=== PATIENT | female | born 1980 | race Caucasian/White ===

== ENCOUNTER 2016-06-08 20:51 | Inpatient (IN) | payer BC ==
[2016-06-08] MEDS ORDERED: Sodium Chloride 0.65% Nasal Spray 45 ML Bottle NAS PRN (23:59)
[2016-06-09] MEDS ORDERED: Lactated Ringers 1,000 ML ONE (05:56)
[2016-06-09] MEDS: Lactated Ringers 1,000 ML IV SCH ×3 (06:10→15:55)
[2016-06-09] MEDS ORDERED: Nalbuphine 20 MG/1 ML Amp IVPUSH PRN (06:28)
[2016-06-09] MEDS ORDERED: Ondansetron 4 MG/2 ML SDV IVPUSH PRN (06:28)
[2016-06-09] MEDS ORDERED: Lidocaine 1% 50 ML MDV INJECT PRN (06:28)
[2016-06-09] MEDS ORDERED: Oxytocin/Lactated Ringers 10 UNIT/1,000 ML BAG IV SCH ×2 (06:30→06:45)
--- NOTE | 2016-06-09 06:46 | PCM.LDHP ---
L&D History of Present Illness - General Date of Service: 06/09/16 Admit Problem/Dx: Patient Status Order with Admit Dx/Problem 06/08/16 23:58 Patient Status [ADT] Routine Patient Status: Refer to Observation Admission Diagnosis/Problem: Reason for Admit: labor check Nurse Unit Type: Labor and Delivery Admitting Physician: Nidia Mills Attending Physician: Nidia Mills Medicare 96 Hour Certification Statement: This Patient is Admitted for Inpatient Services and is Medically Appropriate and Meets Medical Necessity for Inpatient Admission. I Reasonably Expect the Patient Will Require Inpatient Services That Span a Period of Time Over 2 Midnights. My Rationale for Medically Necessary Inpatient Care Will Be Found in the Admission History & Physical and Progress Notes. I Reasonably Expect the Patient to be Discharged or Transferred Within 96 Hours After Admission to This [facility] Hospital. Admission Diagnosis/Problem Admission Diagnosis/Problem Source of Information: Patient History Limitations: Reports: No limitations - History of Present Illness Introduction:: Patient is a 35 y/o at 39 3/7 wks who presented last night around 2100 for concerns of possible labor. She was found to only be 1 cm dilated, but at times was noted to have an intermittent late deceleration. She was kept for observation given this finding and throughout the night has continued to have sporadic late decelerations and has had 2 prolonged decelerations. She is otherwise doing well. Denies any further contractions. 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: Psychiatric History: Reports: Anxiety, Depression - Past Surgical History HEENT Surgical History: Reports: Adenoidectomy, Myringotomy w tube(s), Tonsillectomy GI Surgical History: Reports: Hernia, abdominal Female Surgical History: Reports: section, LEEP Social & Family History - Family History Family Medical History: Noncontributory - Tobacco Use Smoking Status *Q: Never Smoker Second Hand Smoke Exposure: No - Caffeine Use Caffeine Use: Reports: Soda - Alcohol Use Alcohol Use History: No Days Per Week of Alcohol Use: 0 Number of Drinks Per Day: 3 Total Drinks Per Week: 0 - Recreational Drug Use Recreational Drug Use: No - Living Situation & Occupation Living situation: Reports: , with spouse, with family (1 daughter) 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) H&P Review of Systems - Review of Systems: Review Of Systems: See Below General: Reports: no symptoms Pulmonary: Reports: No Symptoms Cardiovascular: Reports: no symptoms 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: Reports: No symptoms Genitourinary: Reports: no symptoms 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: Reports: no symptoms Psychiatric: Reports: no symptoms Neurological: Reports: No Symptoms L&D Exam - Exam Exam: See Below - Vital Signs Vital Signs: Last Vital Signs Temp 36.0 C 06/08/16 23:58 Pulse 95 06/08/16 23:58 Resp 18 06/08/16 23:58 BP 133/80 06/08/16 23:58 Pulse Ox 100 06/08/16 23:58 Weight: 122.062 kg - OB Specific Contraction Intensity: Mild movement: active heart tones: present heart tones per min: 140 Heart Rate (FHR) Variability: Moderate (6-25 bmp) Presentation: Vertex - Lord Score Lord Score Cervix Position: Anterior Lord Score Consistency: Soft Lord Score Effacement: >80% Lord Score Dilation: 1-2 cm Lord Score Infant's Station: -2 Lord Score Total: 9 - Exam General: alert, oriented, cooperative Lungs: Clear to auscultation, Normal respiratory effort Cardiovascular: regular rate, regular rhythm Abdomen: soft Genitourinary: Normal external exam Extremities: normal inspection Skin: warm, dry, intact - Patient Data Result Diagrams: 06/09/16 08:06 - Problem List (1) 39 weeks gestation of SNOMED Code(s): 23060470 ICD Code: Z3A.39 - 39 WEEKS GESTATION OF Status: Acute Current Visit: Yes (2) History of SNOMED Code(s): 961250156 ICD Code: Z98.891 - HISTORY OF UTERINE SCAR FROM PREVIOUS SURGERY Status: Acute Current Visit: Yes (3) Desires (vaginal after ) trial SNOMED Code(s): 730390378, 026578778 ICD Code: O34.219 - MATERNAL CARE FOR UNSP TYPE SCAR FROM PREVIOUS DEL Status: Acute Current Visit: Yes (4) MARLO (obstructive sleep apnea) SNOMED Code(s): 82521292 ICD Code: G47.33 - OBSTRUCTIVE SLEEP APNEA (ADULT) (PEDIATRIC) Status: Acute Current Visit: Yes Problem List Initiated/Reviewed/Updated: Yes Orders Last 24hrs: Active Orders 24 hr Category Date Time Status Patient Status [ADT] Routine ADT 06/08/16 23:58 Active Activity as Tolerated [RC] PFP Care 06/09/16 06:28 Active Communication Order [RC] ASDIRECTED Care 06/09/16 06:28 Active Notify Provider [RC] PRN Care 06/09/16 06:28 Active Up ad Ann [RC] Care 06/08/16 23:59 Active Vital Signs [RC] Care 06/08/16 23:58 Active Vital Signs [RC] PER UNIT ROUTINE Care 06/09/16 06:28 Active Regular Diet [DIET] Diet 06/08/16 Breakfast Active CBC WITH AUTO DIFF [HEME] Timed Lab 06/09/16 06:28 Ordered TYPE AND SCREEN [BBK] Timed Lab 06/09/16 06:45 Ordered Lactated Ringers [Ringers, Lactated] 1,000 ml Med 06/09/16 06:30 Active IV ASDIRECTED Lidocaine 1% [Xylocaine 1%] Med 06/09/16 06:28 Active 50 ml INJECT ONETIME PRN Nalbuphine [Nubain] Med 06/09/16 06:28 Active 10 mg IVPUSH Q2H PRN Ondansetron [Zofran] Med 06/09/16 06:28 Active 4 mg IVPUSH Q4H PRN Oxytocin/Lactated Ringers [Pitocin in LR 10 Units/1,000 Med 06/09/16 06:30 Active ML] 10 unit in 1,000 ml IV ASDIRECTED Oxytocin/Lactated Ringers [Pitocin in LR 10 Units/1,000 Med 06/09/16 06:45 Active ML] 10 unit in 1,000 ml IV TITRATE Sodium Chloride 0.65% [[place] Nasal [place]] Med 06/08/16 23:59 Active 1 ml EARNEST Q2H PRN Electronic Heart Tones Ext w TOCO [WOMSER] Oth 06/09/16 06:28 Ordered Routine Electronic Heart Tones Internal [WOMSER] Per Unit Oth 06/09/16 06:28 Ordered Routine Peripheral IV Insertion Adult [OM.PC] Routine Oth 06/09/16 06:28 Ordered Resuscitation Status Routine Resus Stat 06/08/16 23:57 Ordered Medication Orders Lactated Ringer's (Ringers, Lactated) 1,000 mls @ 100 mls/hr IV ASDIRECTED DIANDRA Oxytocin/Lactated Ringer's (Pitocin In Lr 10 Units/1,000 Ml) 10 unit in 1,000 mls @ 500 mls/hr IV ASDIRECTED DIANDRA Oxytocin/Lactated Ringer's (Pitocin In Lr 10 Units/1,000 Ml) 10 unit in 1,000 mls @ 12 mls/hr IV TITRATE DIANDRA; 2 MUNITS/MIN PRN Reason: Protocol Lidocaine HCl (Xylocaine 1%) 50 ml INJECT ONETIME PRN PRN Reason: perineal pain Nalbuphine HCl (Nubain) 10 mg IVPUSH Q2H PRN PRN Reason: Pain (moderate 4-6) Ondansetron HCl (Zofran) 4 mg IVPUSH Q4H PRN PRN Reason: Nausea/Vomiting Sodium Chloride ([place] Nasal [place]) 1 ml EARNEST Q2H PRN PRN Reason: nasal congestion Assessment/Plan Comment:: 35 y/o at 39 3/7 wks presented last night for concerns of labor. No active cervical change, however, with intermittent late decelerations and 2 prolonged decelerations. Discussed with patient findings on monitor. Would recommend she stay for delivery. This could be accomplished two ways. Could proceed with RLTCS or could try an induction/TOLAC. Concern with TOLAC is that baby may not tolerate this process, however, tracing findings right now are intermittent enough that I don't think this precludes trial. Did review again risks of TOLAC including uterine rupture, impaired blood flow to baby, neurological injury to baby, or even . She expressed understanding of these risks and desires to proceed. Sorto bulb placed and will start pitocin. Will monitor closely. AROM when able. CBC and T&S now. GBS negative , no need for antibiotics. Pain management per her preference.
--- NOTE | 2016-06-09 12:35 | PCM.PREANE ---
Preanesthetic Assessment - Anesthesia/Transfusion/Family Hx Anesthesia History: Prior Anesthesia Without Reaction Transfusion History: No Prior Transfusion(s) - Physical Assessment O2 Sat by Pulse Oximetry: 100 Respiratory Rate: 18 Vital Signs: Last Vital Signs Temp 36.0 C 06/08/16 23:58 Pulse 95 06/08/16 23:58 Resp 18 06/08/16 23:58 BP 133/80 06/08/16 23:58 Pulse Ox 100 06/08/16 23:58 Height: 1.6 m Weight: 122.062 kg - Lab Values: Laboratory Last Values WBC 7.16 K/mm3 (3.98-10.04) 06/09/16 08:06 RBC 4.23 M/mm3 (3.98-5.22) 06/09/16 08:06 Hgb 12.2 gm/L (11.2-15.7) 06/09/16 08:06 Hct 37.0 % (34.1-44.9) 06/09/16 08:06 MCV 87.5 fl (79.4-94.8) 06/09/16 08:06 MCH 28.8 pg (25.6-32.2) 06/09/16 08:06 MCHC 33.0 g/dl (32.2-35.5) 06/09/16 08:06 RDW Std Deviation 45.1 fL (36.4-46.3) 06/09/16 08:06 Plt Count 215 K/mm3 (182-369) 06/09/16 08:06 MPV 10.6 fl (9.4-12.3) 06/09/16 08:06 Neut % (Auto) 56.4 % (34.0-71.1) 06/09/16 08:06 Lymph % (Auto) 29.2 % (19.3-51.7) 06/09/16 08:06 [place] % (Auto) 12.3 % (4.7-12.5) 06/09/16 08:06 Eos % (Auto) 1.7 (0.7-5.8) 06/09/16 08:06 Baso % (Auto) 0.1 % (0.1-1.2) 06/09/16 08:06 Neut # 4.04 K/mm3 (1.56-6.13) 06/09/16 08:06 Lymph # 2.09 K/mm3 (1.18-3.74) 06/09/16 08:06 [place] # 0.88 K/mm3 (0.24-0.36) H 06/09/16 08:06 Eos # 0.12 K/mm3 (0.04-0.36) 06/09/16 08:06 Baso # 0.01 K/mm3 (0.01-0.08) 06/09/16 08:06 Blood Type A POSITIVE 06/09/16 08:06 Gel Antibody Screen Negative 06/09/16 08:06 - Allergies Allergies/Adverse Reactions: Allergies Allergy/AdvReac Type Severity Reaction Status Date / Time No Known Allergies Allergy Verified 06/08/16 21:52 PreAnesthesia Questionnaire - Past Health History Medical/Surgical History: Denies Medical/Surgical History Respiratory History: Reports: Sleep apnea Other Respiratory History: uses CPAP at night 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: Reports: GERD 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: Psychiatric History: Reports: Anxiety, Depression - Infectious Disease History Infectious Disease History: Reports: Chicken pox - Past Surgical History HEENT Surgical History: Reports: Adenoidectomy, Myringotomy w tube(s), Tonsillectomy GI Surgical History: Reports: Hernia, abdominal Female Surgical History: Reports: section, LEEP - SUBSTANCE USE Smoking Status *Q: Never Smoker Second Hand Smoke Exposure: No Days Per Week of Alcohol Use: 0 Number of Drinks Per Day: 3 Total Drinks Per Week: 0 Recreational Drug Use History: No - HOME MEDS Home Medications: Home Meds Citalopram Hydrobromide [Celexa] 20 mg PO DAILY 10/22/15 [History] Esomeprazole Magnesium [Nexium] 40 mg PO BEDTIME 01/04/16 [History] - CURRENT (IN HOUSE) MEDS Current Meds: Current Medications Lactated Ringer's (Ringers, Lactated) 1,000 mls @ 100 mls/hr IV ASDIRECTED [facility] Last Admin: 06/09/16 07:55 Dose: 100 mls/hr Oxytocin/Lactated Ringer's (Pitocin In Lr 10 Units/1,000 Ml) 10 unit in 1,000 mls @ 500 mls/hr IV ASDIRECTED [facility] Oxytocin/Lactated Ringer's (Pitocin In Lr 10 Units/1,000 Ml) 10 unit in 1,000 mls @ 12 mls/hr IV TITRATE DIANDRA; 2 MUNITS/MIN PRN Reason: Protocol Last Titration: 06/09/16 11:15 Dose: 10 munits/min, 60 mls/hr Lidocaine HCl (Xylocaine 1%) 50 ml INJECT ONETIME PRN PRN Reason: perineal pain Nalbuphine HCl (Nubain) 10 mg IVPUSH Q2H PRN PRN Reason: Pain (moderate 4-6) Ondansetron HCl (Zofran) 4 mg IVPUSH Q4H PRN PRN Reason: Nausea/Vomiting Sodium Chloride ([place] Nasal [place]) 1 ml EARNEST Q2H PRN PRN Reason: nasal congestion Discontinued Medications Lactated Ringer's (Ringers, Lactated) Confirm Administered Dose 1,000 mls @ as directed .ROUTE .K-MED ONE Stop: 06/09/16 05:57 Last Admin: 06/09/16 07:12 Dose: Not Given Preanesthetic Assessment - ANESTHESIA/TRANSFUSION/FAMILY HX Anesthesia/Transfusion History: No Prior Transfusion(s), Prior Anesthesia (pt stated she vomited for most of her last in [place], no other complications with any of her other anesthetics ) Family History of Anesthesia Reaction: No Intubation History: Unknown Type of Transfusion Reactions: Reports: Unknown - REVIEW OF SYSTEMS Constitutional: Reports: cold symptoms (sinus congestion ) 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 Respiratory: Reports: no symptoms Cardiovascular: Reports: no symptoms GI: Reports: no symptoms (GERD controlled with medication ) Other: Reports: None, Depression, Anxiety - PHYSICAL ASSESSMENT O2 Sat by Pulse Oximetry: 100 RR: 18 Vital Signs: Last Vital Signs Temp 36.0 C 06/08/16 23:58 Pulse 95 06/08/16 23:58 Resp 18 06/08/16 23:58 BP 133/80 06/08/16 23:58 Pulse Ox 100 06/08/16 23:58 Height: 1.6 m Weight: 122.062 kg NPO Status Date: 06/09/16 NPO Status Time: 08:00 ASA Class: 2 Mental Status: Alert & Oriented x3 Airway Class: Mallampati = 3 Dentition: Reports: Missing Tooth/Teeth (missing molars x2) ROM/Head Extension: Full Respiratory Status: lungs clear to auscultation bilaterally Cardiovascular Status: regular rate & rhythm, normal S1, S2, no murmur, blood pressure WNL - LAB Values: Laboratory Last Values WBC 7.16 K/mm3 (3.98-10.04) 06/09/16 08:06 RBC 4.23 M/mm3 (3.98-5.22) 06/09/16 08:06 Hgb 12.2 gm/L (11.2-15.7) 06/09/16 08:06 Hct 37.0 % (34.1-44.9) 06/09/16 08:06 MCV 87.5 fl (79.4-94.8) 06/09/16 08:06 MCH 28.8 pg (25.6-32.2) 06/09/16 08:06 MCHC 33.0 g/dl (32.2-35.5) 06/09/16 08:06 RDW Std Deviation 45.1 fL (36.4-46.3) 06/09/16 08:06 Plt Count 215 K/mm3 (182-369) 06/09/16 08:06 MPV 10.6 fl (9.4-12.3) 06/09/16 08:06 Neut % (Auto) 56.4 % (34.0-71.1) 06/09/16 08:06 Lymph % (Auto) 29.2 % (19.3-51.7) 06/09/16 08:06 [place] % (Auto) 12.3 % (4.7-12.5) 06/09/16 08:06 Eos % (Auto) 1.7 (0.7-5.8) 06/09/16 08:06 Baso % (Auto) 0.1 % (0.1-1.2) 06/09/16 08:06 Neut # 4.04 K/mm3 (1.56-6.13) 06/09/16 08:06 Lymph # 2.09 K/mm3 (1.18-3.74) 06/09/16 08:06 [place] # 0.88 K/mm3 (0.24-0.36) H 06/09/16 08:06 Eos # 0.12 K/mm3 (0.04-0.36) 06/09/16 08:06 Baso # 0.01 K/mm3 (0.01-0.08) 06/09/16 08:06 Blood Type A POSITIVE 06/09/16 08:06 Gel Antibody Screen Negative 06/09/16 08:06 - ALLERGIES Allergies/Adverse Reactions: Allergies Allergy/AdvReac Type Severity Reaction Status Date / Time No Known Allergies Allergy Verified 06/08/16 21:52 - BLOOD Blood Available: No Product(s) Available: None - ANESTHESIA PLAN Preop Beta Heather: No Anesthesia Type Planned: Epidural - ACKNOWLEDGEMENTS Pt an Appropriate Candidate for the Planned Anesthesia: Yes Alternatives and Risks of Anesthesia Discussed w Pt/Guardian: Yes Pt/Guardian Understands and Agrees with Anesthesia Plan: Yes
[2016-06-09] MEDS ORDERED: Bupivacaine/fentaNYL/NS 100 ML Bag EPIDUR SCH (14:00)
--- NOTE | 2016-06-09 15:26 | PCM.SN ---
- Free Text/Narrative Note: Attempted epidural per pt wishes. pt quite obese. anatomical landmarks very difficult to identify/palpate. after multiple attempts at three different levels, and with 4.5 inch epidural needle, unable to encounter epidural space. Pt having difficulty staying in tucked position throughout due to labor pain. Pt asked if she wished me to continue trying and she elected to stop. Pt vital signs stable throughout
[2016-06-09] MEDS ORDERED: Metoclopramide 10 MG/2 ML SDV IVPUSH ONE (15:48)
[2016-06-09] MEDS ORDERED: Citric Acid/Sodium Citrate Solution 30 ML Cup PO ONE (15:48)
[2016-06-09] MEDS ORDERED: ceFAZolin 2 GM in Premix Bag 1 BAG IV ONE (15:48)
--- NOTE | 2016-06-09 15:55 | PCM.PNLD ---
Labor Progress Note - VS & Meds Vital Signs: Last Vital Signs Temp 36.0 C 06/08/16 23:58 Pulse 95 06/08/16 23:58 Resp 18 06/09/16 12:36 BP 133/80 06/08/16 23:58 Pulse Ox 100 06/09/16 12:36 Active Medications: Current Medications Fentanyl/Bupivacaine HCl (Fentanyl/Bupivacaine/Ns 2 Mcg-0.125% 100 Ml) 100 ml EPIDUR ASDIRECTED DIANDRA Lactated Ringer's (Ringers, Lactated) 1,000 mls @ 100 mls/hr IV ASDIRECTED DIANDRA Last Admin: 06/09/16 07:55 Dose: 100 mls/hr Oxytocin/Lactated Ringer's (Pitocin In Lr 10 Units/1,000 Ml) 10 unit in 1,000 mls @ 500 mls/hr IV ASDIRECTED DIANDRA Oxytocin/Lactated Ringer's (Pitocin In Lr 10 Units/1,000 Ml) 10 unit in 1,000 mls @ 12 mls/hr IV TITRATE DIANDRA; 2 MUNITS/MIN PRN Reason: Protocol Last Titration: 06/09/16 11:15 Dose: 10 munits/min, 60 mls/hr Lidocaine HCl (Xylocaine 1%) 50 ml INJECT ONETIME PRN PRN Reason: perineal pain Nalbuphine HCl (Nubain) 10 mg IVPUSH Q2H PRN PRN Reason: Pain (moderate 4-6) Last Admin: 06/09/16 15:30 Dose: 10 mg Non-Formulary Medication (Citalopram Hydrobromide [Celexa]) 20 mg PO DAILY [facility] Ondansetron HCl (Zofran) 4 mg IVPUSH Q4H PRN PRN Reason: Nausea/Vomiting Sodium Chloride ([place] Nasal [place]) 1 ml EARNEST Q2H PRN PRN Reason: nasal congestion Discontinued Medications Lactated Ringer's (Ringers, Lactated) Confirm Administered Dose 1,000 mls @ as directed .ROUTE .STK-MED ONE Stop: 06/09/16 05:57 Last Admin: 06/09/16 07:12 Dose: Not Given - Uterine Contractions Uterine Monitoring Mode: External [place] Contraction Intensity: Moderate - Monitoring Monitor Mode: External Ultrasound Heart Rate (FHR) Baseline: 130 Heart Rate (FHR) Variability: Moderate (6-25 bmp) Accelerations: Present, 15x15 Decelerations: None Strip Review: Category I - Vaginal Exam Dilation (cm): 2 Effacement (Percent): 80 Station: -3 Cervical Position: Anterior - Labor Progress (Free Text) Labor Progress: Patient got up to about 10 of pitocin and requested epidural as contractions started to become very painful. This was attempted by anesthesia, Dr. Rojas, several times and was unfortunately unsuccessful. Patient does not thinks she can continue with a trial of labor after without an epidural. Would like to move on to . Will arrange this under general.
[2016-06-09] MEDS ORDERED: Rocuronium 50 MG/5 ML Vial ONE (16:40)
[2016-06-09] MEDS ORDERED: Propofol 200 MG/20 ML SDV ONE (16:40)
[2016-06-09] MEDS ORDERED: Succinylcholine/Normal Saline 100 MG/5 ML Syringe ONE (16:40)
[2016-06-09] MEDS ORDERED: Lidocaine 1% 6 ML ONE (16:41)
[2016-06-09] MEDS ORDERED: ceFAZolin 1 GM Vial ONE (16:41)
[2016-06-09] MEDS ORDERED: Oxytocin 10 Units/1 ML SDV ONE (16:48)
[2016-06-09] MEDS ORDERED: HYDROmorphone 1 MG/ML Syringe ONE (17:27)
[2016-06-09] MEDS ORDERED: Ondansetron 4 MG/2 ML SDV ONE (17:53)
[2016-06-09] MEDS ORDERED: Neostigmine Methylsulfate 1 MG/ML 5 ML Syringe ONE (17:54)
[2016-06-09] MEDS: fentaNYL 100 MCG/2 ML SDV IVPUSH PRN ×2 (18:15→18:20)
--- NOTE | 2016-06-09 18:21 | PCM.OPNOTE ---
- General Post-Op/Procedure Note Date of Surgery/Procedure: 06/09/16 Operative Procedure(s): Repeat Findings: * moderate amounts of scar tissue between the fascia and the rectus. * Minimal scar tissue between the bladder and lower uterine segment. Lower uterine segment without any sign of thinning or defect. * Baby boy found to be in a vertex presentation, but very unengaged at time of C -section. Due to this he was delivered breech. * Apgars of 2 and 8. Weight of 7 lbs. 2 oz. Pre Op Diagnosis: History of . Declines further trial of labor after C -section Post-Op Diagnosis: Same Anesthesia Technique: General ET tube Primary Surgeon: Nidia Mills Secondary Surgeon: Luis E Weinstein Jr Anesthesia Provider: Yoni Rojas Pathology: Cord blood obtained. Placenta discarded. Fluid Replacement, Intraop: 700 Output, Urine Amount: 65 EBL in mLs: 800 Complications: None Condition: Good Free Text/Narrative:: The risks, benefits, indications, potential complications, and alternatives were explained to the patient and informed consent obtained. The patient was placed in a supine position and then draped and prepped in the usual sterile manner. General anesthesia then induced. A Pfannenstiel incision was made and carried down through the subcutaneous tissue to the fascia. Fascial incision was made and extended transversely. The fascia was from the underlying rectus tissue superiorly and inferiorly. The peritoneum was identified and entered. Peritoneal incision was extended longitudinally. The utero-vesical peritoneal reflection was incised transversely and the bladder flap was bluntly freed from the lower uterine segment. A low transverse uterine incision was made sharply with a scalpel and extended bluntly in a cephalocaudad direction. A hand was placed into the uterus and baby was found to be cephalic, but very unengaged. This made it difficult to bring the baby out of the uterus in a vertex presentation. Due to this difficulty decision made to proceed with breech delivery. A hand was used to grasp one foot which was brought through the hysterotomy and then the same procedure was repeated for the second foot. Normal breech maneuvers then performed to complete delivery. APGARS as above. After the umbilical cord was clamped and cut cord blood was obtained for evaluation. The placenta was removed intact and appeared normal. The uterus was unable to be exteriorized and so was cleared of clots while in the abdomen. The uterine outline appeared normal. Tubes and ovaries could not be seen. The uterine incision was closed with running locked sutures of 0 Vicryl. Hemostasis was obtained with a second imbricating layer of 0 vicryl. The infracolic gutters were cleared of blood clots. The fascia was then reapproximated with running sutures of 1 PDS. The sucutaneous tissue was irrigated with sterile warm normal saline, hemostasis obtained with cautery. This layer was closed with a running 0 vicryl. The skin was reapproximated with running Subcuticular 4-0 monocryl sutures. Instrument, sponge, and needle counts were correct prior the abdominal closure and at the conclusion of the case.
[2016-06-09] MEDS: HYDROmorphone 0.5 MG/0.5 ML Syringe IVPUSH PRN ×2 (18:28→18:43)
[2016-06-09] MEDS ORDERED: Morphine 2 MG/ML Syringe IVPUSH PRN (19:35)
[2016-06-09] MEDS ORDERED: Docusate Sodium 100 MG Cap PO PRN (19:35)
[2016-06-09] MEDS ORDERED: Dextrose 5%-Lactated Ringers 1,000 ML IV SCH (19:35)
[2016-06-09] MEDS ORDERED: Lanolin 100% Cream 7 GM Tube TOP PRN (19:35)
[2016-06-09] MEDS: Acetaminophen/oxyCODONE 325-5 MG Tab PO PRN (21:07)
[2016-06-09] MEDS: Citalopram 20 MG Tab PO SCH (21:08)
[2016-06-09] MEDS: Ketorolac 30 MG/ML SDV IVPUSH SCH (23:36)
[2016-06-10] MEDS: Acetaminophen/oxyCODONE 325-5 MG Tab PO PRN ×4 (01:13→19:59)
[2016-06-10] MEDS: Ketorolac 30 MG/ML SDV IVPUSH SCH ×3 (05:39→12:26)
--- NOTE | 2016-06-10 06:34 | PCM.PNPP ---
- General Info Date of Service: 06/10/16 Functional Status: Reports: pain controlled, tolerating diet, ambulating - Review of Systems General: Reports: No Symptoms Pulmonary: Reports: no symptoms Cardiovascular: Reports: No Symptoms 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: Reports: Abdominal pain (Manageable with medications ) Genitourinary: Reports: no symptoms 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: Reports: no symptoms - Patient Data Vital Signs - most recent: Last Vital Signs Temp 36.7 C 06/10/16 04:11 Pulse 109 H 06/10/16 04:11 Resp 19 06/10/16 04:11 BP 122/64 06/10/16 04:11 Pulse Ox 97 06/10/16 04:11 Weight - most recent: 122.062 kg I&O - last 24 hours: Intake & Output 06/09/16 06/09/16 06/10/16 14:59 22:59 06:59 Intake Total 240 5400 Output Total 190 750 Balance 240 5210 -750 Lab Results - last 24 hrs: Laboratory Results - last 24 hr 06/09/16 06/09/16 Range/Units 08:06 08:06 WBC 7.16 (3.98-10.04) K/mm3 RBC 4.23 (3.98-5.22) M/mm3 Hgb 12.2 (11.2-15.7) gm/L Hct 37.0 (34.1-44.9) % MCV 87.5 (79.4-94.8) fl MCH 28.8 (25.6-32.2) pg MCHC 33.0 (32.2-35.5) g/dl RDW Std Deviation 45.1 (36.4-46.3) fL Plt Count 215 (182-369) K/mm3 MPV 10.6 (9.4-12.3) fl Neut % (Auto) 56.4 (34.0-71.1) % Lymph % (Auto) 29.2 (19.3-51.7) % [place] % (Auto) 12.3 (4.7-12.5) % Eos % (Auto) 1.7 (0.7-5.8) Baso % (Auto) 0.1 (0.1-1.2) % Neut # 4.04 (1.56-6.13) K/mm3 Lymph # 2.09 (1.18-3.74) K/mm3 [place] # 0.88 H (0.24-0.36) K/mm3 Eos # 0.12 (0.04-0.36) K/mm3 Baso # 0.01 (0.01-0.08) K/mm3 Blood Type A POSITIVE Gel Antibody Screen Negative Med Orders - Current: Current Medications Citalopram Hydrobromide (Celexa) 20 mg PO BEDTIME [facility] Last Admin: 06/09/16 21:08 Dose: 20 mg Docusate Sodium (Colace) 100 mg PO Q12H PRN PRN Reason: Constipation Emollient Ointment (Lansinoh Hpa) 0 gm TOP ASDIRECTED PRN PRN Reason: Sore Nipples Ketorolac Tromethamine (Toradol) 30 mg IVPUSH Q6H DIANDRA Stop: 06/10/16 11:56 Last Admin: 06/10/16 05:39 Dose: 30 mg Morphine Sulfate (Morphine) 2 mg IVPUSH Q1H PRN PRN Reason: Pain (severe 7-10) Oxycodone/Acetaminophen (Percocet 325-5 Mg) 2 tab PO Q4H PRN PRN Reason: Pain (moderate 4-6) Last Admin: 06/10/16 01:13 Dose: 2 tab Discontinued Medications Cefazolin Sodium (Ancef) Confirm Administered Dose 3 gm .ROUTE .STK-MED ONE Stop: 06/09/16 16:42 Citric Acid/Sodium Citrate (Bicitra Solution) 30 ml PO ONETIME ONE Stop: 06/09/16 15:49 Last Admin: 06/09/16 16:24 Dose: 30 ml Fentanyl (Sublimaze) 50 mcg IVPUSH Q5M PRN PRN Reason: Pain Stop: 06/09/16 18:31 Last Admin: 06/09/16 18:20 Dose: 50 mcg Fentanyl/Bupivacaine HCl (Fentanyl/Bupivacaine/Ns 2 Mcg-0.125% 100 Ml) 100 ml EPIDUR ASDIRECTED [facility] Glycopyrrolate () Confirm Administered Dose 1 mg .ROUTE .STK-MED ONE Stop: 06/09/16 17:55 Hydromorphone HCl (Dilaudid) Confirm Administered Dose 1 mg .ROUTE .STK-MED ONE Stop: 06/09/16 17:28 Hydromorphone HCl (Dilaudid) 0.5 mg IVPUSH Q15M PRN PRN Reason: Severe pain Stop: 06/09/16 18:31 Last Admin: 06/09/16 18:43 Dose: 0.5 mg Lactated Ringer's (Ringers, Lactated) Confirm Administered Dose 1,000 mls @ as directed .ROUTE .[facility] ONE Stop: 06/09/16 05:57 Last Admin: 06/09/16 07:12 Dose: Not Given Lactated Ringer's (Ringers, Lactated) 1,000 mls @ 100 mls/hr IV ASDIRECTED DIANDRA Last Admin: 06/09/16 15:55 Dose: 100 mls/hr Oxytocin/Lactated Ringer's (Pitocin In Lr 10 Units/1,000 Ml) 10 unit in 1,000 mls @ 500 mls/hr IV ASDIRECTED DIANDRA Oxytocin/Lactated Ringer's (Pitocin In Lr 10 Units/1,000 Ml) 10 unit in 1,000 mls @ 12 mls/hr IV TITRATE DIANDRA; 2 MUNITS/MIN PRN Reason: Protocol Last Titration: 06/09/16 11:15 Dose: 10 munits/min, 60 mls/hr Cefazolin Sodium/Dextrose 2 gm (/ Premix) 50 mls @ 100 mls/hr IV ONETIME ONE Stop: 06/09/16 16:17 Lidocaine HCl (Xylocaine-Mpf 1%) Confirm Administered Dose 6 mls @ as directed .ROUTE .[facility] ONE Stop: 06/09/16 16:42 Dextrose/Lactated Ringer's (Dextrose 5%-Lactated Ringers) 1,000 mls @ 125 mls/ hr IV ASDIRECTED DIANDRA Stop: 06/10/16 03:34 Last Admin: 06/09/16 21:58 Dose: 125 mls/hr Lidocaine HCl (Xylocaine 1%) 50 ml INJECT ONETIME PRN PRN Reason: perineal pain Metoclopramide HCl (Reglan) 10 mg IVPUSH ONETIME ONE Stop: 06/09/16 15:49 Last Admin: 06/09/16 16:24 Dose: 10 mg Nalbuphine HCl (Nubain) 10 mg IVPUSH Q2H PRN PRN Reason: Pain (moderate 4-6) Last Admin: 06/09/16 15:30 Dose: 10 mg Neostigmine Methylsulfate (Neostigmine) Confirm Administered Dose 5 mg .ROUTE .STK-MED ONE Stop: 06/09/16 17:55 Ondansetron HCl (Zofran) 4 mg IVPUSH Q4H PRN PRN Reason: Nausea/Vomiting Ondansetron HCl (Zofran) Confirm Administered Dose 4 mg .ROUTE .STK-MED ONE Stop: 06/09/16 17:54 Oxytocin (Pitocin) Confirm Administered Dose 10 unit .ROUTE .STK-MED ONE Stop: 06/09/16 16:49 Propofol (Diprivan 20 Ml) Confirm Administered Dose 200 mg .ROUTE .STK-MED ONE Stop: 06/09/16 16:41 Rocuronium [place] (Zemuron) Confirm Administered Dose 50 mg .ROUTE .STK-MED ONE Stop: 06/09/16 16:41 Sodium Chloride ([place] Nasal [place]) 1 ml EARNEST Q2H PRN PRN Reason: nasal congestion Succinylcholine Chloride (Succinylcholine In Ns Pf) Confirm Administered Dose 100 mg .ROUTE .STK-MED ONE Stop: 06/09/16 16:41 - Infant Interaction Infant Disposition, : [place] in Room with Family Infant Interaction: Holding Feeding: Attempted ; Nursed Fair/Poor Support Person: - Recovery Exam Fundal Tone: Firm Fundal Level: At Umbilicus Fundal Placement: Midline Lochia Amount: Small Lochia Color: Rubra/Red Perineum Description: Intact, Minimal Bruising/Swelling Bladder Status: Indwelling Catheter in Place - Exam General: alert, oriented, cooperative Lungs: Clear to auscultation, Normal respiratory effort, Decreased breath sounds Cardiovascular: Regular Rate, Regular Rhythm Abdomen: soft, tenderness (appropriate post op ) Extremities: edema Skin: warm, dry, intact - Problem List & Annotations (1) 39 weeks gestation of SNOMED Code(s): 48052770 Code(s): Z3A.39 - 39 WEEKS GESTATION OF Status: Acute Current Visit: Yes (2) History of SNOMED Code(s): 285558791 Code(s): Z98.891 - HISTORY OF UTERINE SCAR FROM PREVIOUS SURGERY Status: Acute Current Visit: Yes (3) Desires (vaginal after ) trial SNOMED Code(s): 601803983, 757659417 Code(s): O34.219 - MATERNAL CARE FOR UNSP TYPE SCAR FROM PREVIOUS DEL Status: Acute Current Visit: Yes (4) MARLO (obstructive sleep apnea) SNOMED Code(s): 76009405 Code(s): G47.33 - OBSTRUCTIVE SLEEP APNEA (ADULT) (PEDIATRIC) Status: Acute Current Visit: Yes - Problem List Review Problem List Initiated/Reviewed/Updated: Yes - My Orders Last 24 Hours: My Active Orders 06/09/16 17:05 Schedule Procedure [COMM] Stat 06/09/16 19:35 Activity as Tolerated [RC] .Routine Antiembolic Devices [RC] PER UNIT ROUTINE Communication Order [RC] PER UNIT ROUTINE Intake and Output [RC] Q4HR Notify Provider Intake and Out [RC] ASDIRECTED RT Incentive Spirometry [RC] Q2HWA Vital Signs [RC] Q4HR Acetaminophen/oxyCODONE [Percocet 325-5 MG] 2 tab PO Q4H PRN Docusate Sodium [Colace] 100 mg PO Q12H PRN Lanolin [Lansinoh HPA] See Dose Instructions TOP ASDIRECTED PRN Morphine 2 mg IVPUSH Q1H PRN Assess Lochia [WOMSER] Per Unit Routine Assess Uterine Involution [WOMSER] Per Unit Routine Breast Pump [WOMSER] Per Unit Routine Sequential Compression Device [OM.PC] Per Unit Routine 06/09/16 21:00 Citalopram [Celexa] 20 mg PO BEDTIME 06/09/16 23:55 Ketorolac [Toradol] 30 mg IVPUSH Q6H 06/09/16 Dinner Regular Diet [DIET] 06/10/16 05:11 CBC W/O DIFF,HEMOGRAM [HEME] AM 06/10/16 18:22 Urinary Catheter Removal [RC] Per Unit Routine - Assessment Assessment:: 35 y/o G2 now P2002 POD#1 from [facility] at 39 3/7 wks - Plan Plan:: Post op * Routine cares * Encourage breast feeding * Discharge home in 1-2 days
[2016-06-10] MEDS: Famotidine 20 MG Tab PO SCH (07:55)
--- NOTE | 2016-06-10 10:04 | PCM48HPAN ---
Post Anesthesia Note - EVALUATION WITHIN 48HRS OF ANESTHETIC Vital Signs in Normal Range: Yes Patient Participated in Evaluation: Yes Respiratory Function Stable: Yes Airway Patent: Yes Cardiovascular Function Stable: Yes Hydration Status Stable: Yes Pain Control Satisfactory: Yes Nausea and Vomiting Control Satisfactory: Yes Mental Status Recovered: Yes
[2016-06-10] MEDS: Ibuprofen 600 MG Tab PO PRN ×2 (14:08→21:52)
[2016-06-10] MEDS: Citalopram 20 MG Tab PO SCH (21:52)
[2016-06-11] MEDS: Acetaminophen/oxyCODONE 325-5 MG Tab PO PRN ×2 (01:21→05:37)
[2016-06-11] MEDS: Ibuprofen 600 MG Tab PO PRN (04:27)
--- NOTE | 2016-06-11 06:53 | PCM.PNPP ---
- General Info Date of Service: 06/11/16 Functional Status: Reports: pain controlled, tolerating diet, ambulating, urinating - Review of Systems General: Reports: No Symptoms Pulmonary: Reports: no symptoms Cardiovascular: Reports: No Symptoms 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: Reports: No symptoms Genitourinary: Reports: no symptoms 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: Reports: no symptoms - Patient Data Vital Signs - most recent: Last Vital Signs Temp 36.7 C 06/10/16 21:55 Pulse 111 H 06/10/16 21:55 Resp 18 06/10/16 21:55 BP 120/69 06/10/16 21:55 Pulse Ox 97 06/10/16 21:55 Weight - most recent: 122.062 kg I&O - last 24 hours: Intake & Output 06/10/16 06/10/16 06/11/16 14:59 22:59 06:59 Intake Total 1940 Output Total 1215 Balance 725 Lab Results - last 24 hrs: Laboratory Results - last 24 hr 06/10/16 Range/Units 07:48 WBC 7.03 (3.98-10.04) K/mm3 RBC 3.53 L (3.98-5.22) M/mm3 Hgb 10.2 L (11.2-15.7) gm/L Hct 30.9 L (34.1-44.9) % MCV 87.5 (79.4-94.8) fl MCH 28.9 (25.6-32.2) pg MCHC 33.0 (32.2-35.5) g/dl RDW Std Deviation 44.2 (36.4-46.3) fL Plt Count 164 L (182-369) K/mm3 MPV 10.6 (9.4-12.3) fl Med Orders - Current: Current Medications Citalopram Hydrobromide (Celexa) 20 mg PO BEDTIME [facility] Last Admin: 06/10/16 21:52 Dose: 20 mg Docusate Sodium (Colace) 100 mg PO Q12H PRN PRN Reason: Constipation Emollient Ointment (Lansinoh Hpa) 0 gm TOP ASDIRECTED PRN PRN Reason: Sore Nipples Famotidine (Pepcid) 20 mg PO DAILY [facility] Last Admin: 06/10/16 07:55 Dose: 20 mg Ibuprofen (Motrin) 600 mg PO Q6H PRN PRN Reason: Pain Last Admin: 06/11/16 04:27 Dose: 600 mg Morphine Sulfate (Morphine) 2 mg IVPUSH Q1H PRN PRN Reason: Pain (severe 7-10) Oxycodone/Acetaminophen (Percocet 325-5 Mg) 2 tab PO Q4H PRN PRN Reason: Pain (moderate 4-6) Last Admin: 06/11/16 05:37 Dose: 2 tab Discontinued Medications Cefazolin Sodium (Ancef) Confirm Administered Dose 3 gm .ROUTE .STK-MED ONE Stop: 06/09/16 16:42 Citric Acid/Sodium Citrate (Bicitra Solution) 30 ml PO ONETIME ONE Stop: 06/09/16 15:49 Last Admin: 06/09/16 16:24 Dose: 30 ml Fentanyl (Sublimaze) 50 mcg IVPUSH Q5M PRN PRN Reason: Pain Stop: 06/09/16 18:31 Last Admin: 06/09/16 18:20 Dose: 50 mcg Fentanyl/Bupivacaine HCl (Fentanyl/Bupivacaine/Ns 2 Mcg-0.125% 100 Ml) 100 ml EPIDUR ASDIRECTED [facility] Glycopyrrolate () Confirm Administered Dose 1 mg .ROUTE .STK-MED ONE Stop: 06/09/16 17:55 Hydromorphone HCl (Dilaudid) Confirm Administered Dose 1 mg .ROUTE .STK-MED ONE Stop: 06/09/16 17:28 Hydromorphone HCl (Dilaudid) 0.5 mg IVPUSH Q15M PRN PRN Reason: Severe pain Stop: 06/09/16 18:31 Last Admin: 06/09/16 18:43 Dose: 0.5 mg Lactated Ringer's (Ringers, Lactated) Confirm Administered Dose 1,000 mls @ as directed .ROUTE .STK-MED ONE Stop: 06/09/16 05:57 Last Admin: 06/09/16 07:12 Dose: Not Given Lactated Ringer's (Ringers, Lactated) 1,000 mls @ 100 mls/hr IV ASDIRECTED [facility] Last Admin: 06/09/16 15:55 Dose: 100 mls/hr Oxytocin/Lactated Ringer's (Pitocin In Lr 10 Units/1,000 Ml) 10 unit in 1,000 mls @ 500 mls/hr IV ASDIRECTED [facility] Oxytocin/Lactated Ringer's (Pitocin In Lr 10 Units/1,000 Ml) 10 unit in 1,000 mls @ 12 mls/hr IV TITRATE DIANDRA; 2 MUNITS/MIN PRN Reason: Protocol Last Titration: 06/09/16 11:15 Dose: 10 munits/min, 60 mls/hr Cefazolin Sodium/Dextrose 2 gm (/ Premix) 50 mls @ 100 mls/hr IV ONETIME ONE Stop: 06/09/16 16:17 Lidocaine HCl (Xylocaine-Mpf 1%) Confirm Administered Dose 6 mls @ as directed .ROUTE .STK-MED ONE Stop: 06/09/16 16:42 Dextrose/Lactated Ringer's (Dextrose 5%-Lactated Ringers) 1,000 mls @ 125 mls/ hr IV ASDIRECTED DIANDRA Stop: 06/10/16 03:34 Last Admin: 06/09/16 21:58 Dose: 125 mls/hr Ketorolac Tromethamine (Toradol) 30 mg IVPUSH Q6H [facility] Stop: 06/10/16 11:56 Last Admin: 06/10/16 12:26 Dose: Not Given Lidocaine HCl (Xylocaine 1%) 50 ml INJECT ONETIME PRN PRN Reason: perineal pain Metoclopramide HCl (Reglan) 10 mg IVPUSH ONETIME ONE Stop: 06/09/16 15:49 Last Admin: 06/09/16 16:24 Dose: 10 mg Nalbuphine HCl (Nubain) 10 mg IVPUSH Q2H PRN PRN Reason: Pain (moderate 4-6) Last Admin: 06/09/16 15:30 Dose: 10 mg Neostigmine Methylsulfate (Neostigmine) Confirm Administered Dose 5 mg .ROUTE .STK-MED ONE Stop: 06/09/16 17:55 Ondansetron HCl (Zofran) 4 mg IVPUSH Q4H PRN PRN Reason: Nausea/Vomiting Ondansetron HCl (Zofran) Confirm Administered Dose 4 mg .ROUTE .STK-MED ONE Stop: 06/09/16 17:54 Oxytocin (Pitocin) Confirm Administered Dose 10 unit .ROUTE .STK-MED ONE Stop: 06/09/16 16:49 Propofol (Diprivan 20 Ml) Confirm Administered Dose 200 mg .ROUTE .STK-MED ONE Stop: 06/09/16 16:41 Rocuronium [place] (Zemuron) Confirm Administered Dose 50 mg .ROUTE .STK-MED ONE Stop: 06/09/16 16:41 Sodium Chloride ([place] Nasal [place]) 1 ml EARNEST Q2H PRN PRN Reason: nasal congestion Succinylcholine Chloride (Succinylcholine In Ns Pf) Confirm Administered Dose 100 mg .ROUTE .STK-MED ONE Stop: 06/09/16 16:41 - Interaction Infant Disposition, : in Room with Family Infant Interaction: Holding Infant Infant Feeding: Attempted ; Nursed Fair/Poor Support Person: - Recovery Exam Fundal Tone: Firm Fundal Level: At Umbilicus Fundal Placement: Midline Lochia Amount: Small Lochia Color: Rubra/Red Perineum Description: Intact, Minimal Bruising/Swelling Bladder Status: Voiding - Exam General: alert, oriented, cooperative Lungs: Clear to auscultation, Normal respiratory effort Cardiovascular: Regular Rate, Regular Rhythm Abdomen: soft, tenderness (appropriate post op) Extremities: edema Skin: warm, dry, intact - Problem List & Annotations (1) 39 weeks gestation of SNOMED Code(s): 90720710 Code(s): Z3A.39 - 39 WEEKS GESTATION OF Status: Acute Current Visit: Yes (2) History of SNOMED Code(s): 348450948 Code(s): Z98.891 - HISTORY OF UTERINE SCAR FROM PREVIOUS SURGERY Status: Acute Current Visit: Yes (3) Desires (vaginal after ) trial SNOMED Code(s): 147918808, 392094267 Code(s): O34.219 - MATERNAL CARE FOR UNSP TYPE SCAR FROM PREVIOUS DEL Status: Acute Current Visit: Yes (4) MARLO (obstructive sleep apnea) SNOMED Code(s): 22974382 Code(s): G47.33 - OBSTRUCTIVE SLEEP APNEA (ADULT) (PEDIATRIC) Status: Acute Current Visit: Yes (5) S/P repeat low transverse SNOMED Code(s): 926320791, 393394891, 801838966, 187927248 Code(s): Z98.891 - HISTORY OF UTERINE SCAR FROM PREVIOUS SURGERY Status: Acute Current Visit: Yes - Problem List Review Problem List Initiated/Reviewed/Updated: Yes - My Orders Last 24 Hours: My Active Orders 06/10/16 06:45 Famotidine [Pepcid] 20 mg PO DAILY 06/10/16 14:00 Ibuprofen [Motrin] 600 mg PO Q6H PRN - Assessment Assessment:: 35 y/o G2 now P2002 POD#2 from [facility] at 39 3/7 wks - Plan Plan:: Post op * Routine cares * Encourage breast feeding * Discharge home today per patient preference
--- NOTE | 2016-06-11 07:31 | PCM.DCSUM1 ---
Discharge Summary - Discharge Data Discharge Date: 06/11/16 Discharge Disposition: Home, Self-Care 01 Condition: Good - Discharge Diagnosis/Problem(s) (1) 39 weeks gestation of SNOMED Code(s): 00631303 ICD Code: Z3A.39 - 39 WEEKS GESTATION OF Status: Acute Current Visit: Yes (2) History of SNOMED Code(s): 137607396 ICD Code: Z98.891 - HISTORY OF UTERINE SCAR FROM PREVIOUS SURGERY Status: Acute Current Visit: Yes (3) Desires (vaginal after ) trial SNOMED Code(s): 206300444, 538772151 ICD Code: O34.219 - MATERNAL CARE FOR UNSP TYPE SCAR FROM PREVIOUS DEL Status: Acute Current Visit: Yes (4) MARLO (obstructive sleep apnea) SNOMED Code(s): 45717013 ICD Code: G47.33 - OBSTRUCTIVE SLEEP APNEA (ADULT) (PEDIATRIC) Status: Acute Current Visit: Yes (5) S/P repeat low transverse SNOMED Code(s): 126774610, 586612111, 739942600, 734670300 ICD Code: Z98.891 - HISTORY OF UTERINE SCAR FROM PREVIOUS SURGERY Status: Acute Current Visit: Yes - Patient Summary/Data Operative Procedure(s) Performed: Repeat Complications: None Consults: None Recommended Follow-up Testing/Procedures: Follow up in 1-2 weeks for incision check Hospital Course: 35 y/o presented at 39 3/7 wks with concerns for labor. She had a history of prior and did desire TOLAC. She was found to not make much cervical change, but did have a tracing with several late decelerations and also a few prolonged decelerations. Due to these findings it was decided to keep her for augmentation. This was done with pitocin. Patient did get uncomfortable with this and desired epidural which unfortunately was not able to be placed. Due to this and pain with augmentation she then declined further attempt at and instead wished to proceed with Repeat under general anesthesia. See operative note for full details. Post operatively she did well and was discharged home on POD#2. - Patient Instructions Diet: Regular Diet as Tolerated Activity: No Lifting Over 10 Pounds Activity, Other: Pelvic Rest for 6 weeks Driving: Do Not Drive (While taking narcotics ) Showering/Bathing: May Shower, No Tub Bathing/Swimming Wound/Incision Care: Keep Operative Site/Wound Site Clean and Dry Notify Provider of: Fever, Increased Pain, Swelling and Redness, Drainage, Nausea and/or Vomiting - Discharge Plan Prescriptions/Med Rec: Acetaminophen/oxyCODONE [Percocet 325-5 MG] 2 tab PO Q4H PRN #30 tablet PRN Reason: Pain Home Medications: Home Meds Citalopram Hydrobromide [Celexa] 20 mg PO DAILY 10/22/15 [History] Esomeprazole Magnesium [Nexium] 40 mg PO BEDTIME 01/04/16 [History] Acetaminophen/oxyCODONE [Percocet 325-5 MG] 2 tab PO Q4H PRN #30 tablet [Rx] Docusate Sodium [Colace] 100 mg PO Q12H PRN #0 cap 06/11/16 [Rx] Ibuprofen [IJD: Ibuprofen] 600 mg PO Q6H PRN #0 tablet 06/11/16 [Rx] Patient Handouts: Delivery, Care After, Home Care Instructions for Mom , Eating Plan for Women - Discharge Summary/Plan Comment DC Time >30 min.: No - Patient Data Vitals - Most Recent: Last Vital Signs Temp 36.7 C 06/10/16 21:55 Pulse 111 H 06/10/16 21:55 Resp 18 06/10/16 21:55 BP 120/69 06/10/16 21:55 Pulse Ox 97 06/10/16 21:55 Weight - Most Recent: 122.062 kg Lab Results - Last 24 hrs: Laboratory Results - last 24 hr 06/10/16 Range/Units 07:48 WBC 7.03 (3.98-10.04) K/mm3 RBC 3.53 L (3.98-5.22) M/mm3 Hgb 10.2 L (11.2-15.7) gm/L Hct 30.9 L (34.1-44.9) % MCV 87.5 (79.4-94.8) fl MCH 28.9 (25.6-32.2) pg MCHC 33.0 (32.2-35.5) g/dl RDW Std Deviation 44.2 (36.4-46.3) fL Plt Count 164 L (182-369) K/mm3 MPV 10.6 (9.4-12.3) fl Med Orders - Current: Current Medications Citalopram Hydrobromide (Celexa) 20 mg PO BEDTIME [facility] Last Admin: 06/10/16 21:52 Dose: 20 mg Docusate Sodium (Colace) 100 mg PO Q12H PRN PRN Reason: Constipation Emollient Ointment (Lansinoh Hpa) 0 gm TOP ASDIRECTED PRN PRN Reason: Sore Nipples Famotidine (Pepcid) 20 mg PO DAILY [facility] Last Admin: 06/10/16 07:55 Dose: 20 mg Ibuprofen (Motrin) 600 mg PO Q6H PRN PRN Reason: Pain Last Admin: 06/11/16 04:27 Dose: 600 mg Morphine Sulfate (Morphine) 2 mg IVPUSH Q1H PRN PRN Reason: Pain (severe 7-10) Oxycodone/Acetaminophen (Percocet 325-5 Mg) 2 tab PO Q4H PRN PRN Reason: Pain (moderate 4-6) Last Admin: 06/11/16 05:37 Dose: 2 tab Discontinued Medications Cefazolin Sodium (Ancef) Confirm Administered Dose 3 gm .ROUTE .STK-MED ONE Stop: 06/09/16 16:42 Citric Acid/Sodium Citrate (Bicitra Solution) 30 ml PO ONETIME ONE Stop: 06/09/16 15:49 Last Admin: 06/09/16 16:24 Dose: 30 ml Fentanyl (Sublimaze) 50 mcg IVPUSH Q5M PRN PRN Reason: Pain Stop: 06/09/16 18:31 Last Admin: 06/09/16 18:20 Dose: 50 mcg Fentanyl/Bupivacaine HCl (Fentanyl/Bupivacaine/Ns 2 Mcg-0.125% 100 Ml) 100 ml EPIDUR ASDIRECTED [facility] Glycopyrrolate () Confirm Administered Dose 1 mg .ROUTE .STK-MED ONE Stop: 06/09/16 17:55 Hydromorphone HCl (Dilaudid) Confirm Administered Dose 1 mg .ROUTE .STK-MED ONE Stop: 06/09/16 17:28 Hydromorphone HCl (Dilaudid) 0.5 mg IVPUSH Q15M PRN PRN Reason: Severe pain Stop: 06/09/16 18:31 Last Admin: 06/09/16 18:43 Dose: 0.5 mg Lactated Ringer's (Ringers, Lactated) Confirm Administered Dose 1,000 mls @ as directed .ROUTE .STK-MED ONE Stop: 06/09/16 05:57 Last Admin: 06/09/16 07:12 Dose: Not Given Lactated Ringer's (Ringers, Lactated) 1,000 mls @ 100 mls/hr IV ASDIRECTED DIANDRA Last Admin: 06/09/16 15:55 Dose: 100 mls/hr Oxytocin/Lactated Ringer's (Pitocin In Lr 10 Units/1,000 Ml) 10 unit in 1,000 mls @ 500 mls/hr IV ASDIRECTED DIAN[facility] Oxytocin/Lactated Ringer's (Pitocin In Lr 10 Units/1,000 Ml) 10 unit in 1,000 mls @ 12 mls/hr IV TITRATE DIANDRA; 2 MUNITS/MIN PRN Reason: Protocol Last Titration: 06/09/16 11:15 Dose: 10 munits/min, 60 mls/hr Cefazolin Sodium/Dextrose 2 gm (/ Premix) 50 mls @ 100 mls/hr IV ONETIME ONE Stop: 06/09/16 16:17 Lidocaine HCl (Xylocaine-Mpf 1%) Confirm Administered Dose 6 mls @ as directed .ROUTE .STK-MED ONE Stop: 06/09/16 16:42 Dextrose/Lactated Ringer's (Dextrose 5%-Lactated Ringers) 1,000 mls @ 125 mls/ hr IV ASDIRECTED DIANDRA Stop: 06/10/16 03:34 Last Admin: 06/09/16 21:58 Dose: 125 mls/hr Ketorolac Tromethamine (Toradol) 30 mg IVPUSH Q6H DIAN[facility] Stop: 06/10/16 11:56 Last Admin: 06/10/16 12:26 Dose: Not Given Lidocaine HCl (Xylocaine 1%) 50 ml INJECT ONETIME PRN PRN Reason: perineal pain Metoclopramide HCl (Reglan) 10 mg IVPUSH ONETIME ONE Stop: 06/09/16 15:49 Last Admin: 06/09/16 16:24 Dose: 10 mg Nalbuphine HCl (Nubain) 10 mg IVPUSH Q2H PRN PRN Reason: Pain (moderate 4-6) Last Admin: 06/09/16 15:30 Dose: 10 mg Neostigmine Methylsulfate (Neostigmine) Confirm Administered Dose 5 mg .ROUTE .STK-MED ONE Stop: 06/09/16 17:55 Ondansetron HCl (Zofran) 4 mg IVPUSH Q4H PRN PRN Reason: Nausea/Vomiting Ondansetron HCl (Zofran) Confirm Administered Dose 4 mg .ROUTE .STK-MED ONE Stop: 06/09/16 17:54 Oxytocin (Pitocin) Confirm Administered Dose 10 unit .ROUTE .STK-MED ONE Stop: 06/09/16 16:49 Propofol (Diprivan 20 Ml) Confirm Administered Dose 200 mg .ROUTE .STK-MED ONE Stop: 06/09/16 16:41 Rocuronium [place] (Zemuron) Confirm Administered Dose 50 mg .ROUTE .STK-MED ONE Stop: 06/09/16 16:41 Sodium Chloride ([place] Nasal [place]) 1 ml EARNEST Q2H PRN PRN Reason: nasal congestion Succinylcholine Chloride (Succinylcholine In Ns Pf) Confirm Administered Dose 100 mg .ROUTE .STK-MED ONE Stop: 06/09/16 16:41 *Q Meaningful Use (DIS) - VTE *Q VTE Criteria *Q: - Stroke *Q Stroke Criteria *Q: - AMI *Q AMI Criteria *Q:
[2016-06-11 09:21] VITALS: BP 125/61
[2016-06-11] MEDS: Famotidine 20 MG Tab PO SCH (09:40)
== END 2016-06-11 10:47 | disposition home or self-care (01) | DRG 540 ==
LOC: JD.OBCHECK 20:51 → JD.OB 20:51 → JD.OBCHECK 23:57 → JD.OB 23:58 → OBSVTOIN 06-09 17:15
PROVIDERS: ADMIT Obstetrics & Gynecology; ATTEND Obstetrics & Gynecology
PROC: 10D00Z1 Extraction of Products of Conception, Low, Open Approach (ICD-10-PCS; principal; 2016-06-09)
PROC: 00HU33Z Insertion of Infusion Device into Spinal Canal, Percutaneous Approach (ICD-10-PCS; 2016-06-09)
DX: O34.211 Maternal care for low transverse scar from previous cesarean delivery (principal); N85.8 Other specified noninflammatory disorders of uterus; Z3A.39 39 weeks gestation of pregnancy; Z37.0 Single live birth; G47.33 Obstructive sleep apnea (adult) (pediatric)
CPT/HCPCS: 01961; 36415; 59025; 85025; 85027; 86850; 86900; 86901; A9270-GY; J0330; J0690; J1170; J1885; J2300; J2405; J2590; J2704; J2710; J2765; J3010; J7042; J7120

== ENCOUNTER 2017-01-27 21:11 | Emergency (ER) | payer BC ==
[2017-01-27 21:22] VITALS: BP 122/65
[2017-01-27] MEDS ORDERED: Ondansetron 4 MG/2 ML SDV IVPUSH ONE (21:37)
[2017-01-27] MEDS ORDERED: Haloperidol Lactate 5 MG/ML SDV IM ONE (21:37)
[2017-01-27] MEDS ORDERED: Sodium Chloride 0.9% 1,000 ML IV ONE (21:37)
[2017-01-27] MEDS ORDERED: diphenhydrAMINE 50 MG/ML SDV IVPUSH ONE (21:37)
--- NOTE | 2017-01-27 21:44 | EDM.PDOC ---
ED HPI GENERAL MEDICAL PROBLEM - General Chief Complaint: Headache Stated Complaint: headache Time Seen by Provider: 01/27/17 21:19 Source of Information: Reports: Patient, Family (), RN Notes Reviewed History Limitations: Reports: No Limitations - History of Present Illness INITIAL COMMENTS - FREE TEXT/NARRATIVE: The patient states that she has had a continuous headache since Tuesday, 2016. She describes the headache as a "white hot poker behind my left eye". She reports photophobia, but questionable phonophobia. No visual changes. No neurologic symptoms, such as tingling, numbness, or weakness. The patient states that she gets similar headaches once or twice a month, but only once before she had this severe, several years ago. She states that she usually gets these headaches if she is tired or dehydrated. She states that she has never previously had a medical evaluation, has never seen a neurologist, and has never had an imaging study of her head. She states that she saw Yamila Castro yesterday. No tests were done, but she was prescribed Imitrex. The patient states that she took one tablet yesterday, one tablet this morning, and one tablet this evening. She states that she did get relief last night and this morning, but not this evening. She states that she then took a left-over T3 tablet about 1.5 hours ago, which has not helped. The patient states that she is breast-feeding a 7.5 month old . The patient's PCP is Dr. Darcy Morel. 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: Psychiatric History: Reports: Anxiety, Depression Endocrine/Metabolic History: Reports: Obesity/BMI 30+ - Infectious Disease History Infectious Disease History: Reports: Chicken Pox - Past Surgical History HEENT Surgical History: Reports: Adenoidectomy, Myringotomy w Tube(s) (bilateral ), Oral Surgery ([place] teeth extraction), Tonsillectomy GI Surgical History: Reports: Hernia, Abdominal Female Surgical History: Reports: Section (x 2), LEEP Social & Family History - Family History Family Medical History: Noncontributory - Tobacco Use Smoking Status *Q: Never Smoker Second Hand Smoke Exposure: No - Caffeine Use Caffeine Use: Reports: Soda - Alcohol Use Alcohol Use History: Yes Days Per Week of Alcohol Use: 0 Number of Drinks Per Day: 3 Total Drinks Per Week: 0 Alcohol Use Frequency: Socially - Recreational Drug Use Recreational Drug Use: No - Living Situation & Occupation Living situation: Reports: , with Spouse, with Family (2 kids) Occupation: Employed ([employer]) ED ROS GENERAL - Review of Systems Review Of Systems: See Below Constitutional: Reports: No Symptoms HEENT: Reports: No Symptoms Respiratory: Reports: No Symptoms Cardiovascular: Reports: No Symptoms Endocrine: Reports: No Symptoms GI/Abdominal: Reports: No Symptoms : Reports: No Symptoms 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: Reports: No Symptoms Skin: Reports: No Symptoms Neurological: Reports: No Symptoms Psychiatric: Reports: No Symptoms Hematologic/Lymphatic: Reports: No Symptoms Immunologic: Reports: No Symptoms - Physical Exam Exam: See Below Exam Limited By: No Limitations General Appearance: Alert, WD/WN, No Apparent Distress (wearing sunglasses) Eye Exam: Bilateral Eye: EOMI, Normal Inspection, PERRL Ears: Normal External Exam, Hearing Grossly Normal Nose: Normal Inspection, No Blood Throat/Mouth: Normal Inspection, Normal Lips, Normal Voice, No Airway Compromise Head Exam: Atraumatic, Normocephalic Neck: Normal Inspection, Full Range of Motion Respiratory/Chest: No Respiratory Distress, Lungs Clear, Normal Breath Sounds, No Accessory Muscle Use Cardiovascular: Normal Peripheral Pulses, Regular Rate, Rhythm, No Gallop, No JVD, No Murmur, No Rub GI/Abdominal: Normal Bowel Sounds, Soft, Non-Tender, No Organomegaly, No Distention, No Abnormal Bruit, No Mass, Other (Obese) (Female) Exam: Deferred Rectal (Female) Exam: Deferred Neuro Exam (Abbreviated): Alert, Oriented, CN II-XII Intact, Normal Cognition, No Motor/Sensory Deficits Back Exam: Normal Inspection, Full Range of Motion, NT Extremities: Normal Inspection, Normal Range of Motion, No Pedal Edema, Normal Capillary Refill Psychiatric: Normal Affect Skin Exam: Warm, Dry, Intact, Normal Color, No Rash Course - Vital Signs Last Recorded V/S: Last Vital Signs Temp 36.2 C 01/27/17 21:18 Pulse 72 01/27/17 21:18 Resp BP 122/65 01/27/17 21:18 Pulse Ox 98 01/27/17 21:18 - Orders/Labs/Meds Orders: Active Orders 24 hr Category Date Time Status Head wo Cont [CT] Stat Exams 01/27/17 21:37 Taken Sodium Chloride 0.9% [Normal Saline] 1,000 ml Med 01/27/17 21:37 Active IV ONETIME Medication Orders Sodium Chloride (Normal Saline) 1,000 mls @ 999 mls/hr IV ONETIME ONE Stop: 01/27/17 22:37 Last Admin: 01/27/17 21:53 Dose: 999 mls/hr Meds: Medications Generic Name Dose Route Start Last Admin Trade Name Freq PRN Reason Stop Dose Admin Sodium Chloride 1,000 mls @ 999 mls/hr 01/27/17 21:37 01/27/17 21:53 Normal Saline IV 01/27/17 22:37 999 mls/hr ONETIME ONE Administration Discontinued Medications Generic Name Dose Route Start Last Admin Trade Name Freq PRN Reason Stop Dose Admin Diphenhydramine HCl 50 mg 01/27/17 21:37 01/27/17 21:56 Benadryl IVPUSH 01/27/17 21:38 50 mg ONETIME ONE Administration Haloperidol Lactate 5 mg 01/27/17 21:37 01/27/17 21:56 Haldol IM 01/27/17 21:38 5 mg ONETIME ONE Administration Ondansetron HCl 4 mg 01/27/17 21:37 01/27/17 21:53 Zofran IVPUSH 01/27/17 21:38 4 mg ONETIME ONE Administration - Re-Assessments/Exams Free Text/Narrative Re-Assessment/Exam: 01/27/17 22:20 CT of the head without contrast is read by [facility] as "No intracranial mass effect, hemorrhage or acute large territory infarct." 01/27/17 22:32 The patient reports SUBSTANTIAL improvement in her symptoms following IM Haldol. This strongly indicates that the patient's headache is migrainous in etiology. I will e-prescribe Maxalt as an abortive agent, however, I am recommending, given the frequency of her headaches, that she be started on a migraine prophylactic medication. I will have her discuss that with her PCP, Dr. Morel, who may wish to refer the patient to a Neurologist. Departure - Departure Time of Disposition: 22:33 Disposition: Home, Self-Care 01 Condition: Good Clinical Impression: Migraine headache without aura - Discharge Information Referrals: Darcy Morel DO [Primary Care Provider] - Forms: ED Department Discharge Additional Instructions: You were seen in the emergency room for a headache. Workup in the ER included a CT scan of your head, which was normal. Your symptoms substantially improved following an injection of Haldol, a neuroleptic. This STRONGLY suggests that your headache was a migraine. Get plenty of rest tonight, in a dark, quiet place. Stay well hydrated. You have been prescribed the anti-migraine medicine Maxalt (rizatriptan). Dissolve 1 tablet in your mouth at the earliest onset of a migraine. You may repeat after 2 hours, to a maximum of 3 tablets within a 24-hour period. If this medicine works, talk to Dr. Morel about a refill. Given the frequency of your headaches, we also recommend that you talk to Dr. Morel about migraine-preventive treatment. If any other problems, please do not hesitate to return to the ER. - My Orders Last 24 Hours: My Active Orders 01/27/17 21:37 Head wo Cont [CT] Stat Sodium Chloride 0.9% [Normal Saline] 1,000 ml IV ONETIME - Assessment/Plan Last 24 Hours: My Active Orders 01/27/17 21:37 Head wo Cont [CT] Stat Sodium Chloride 0.9% [Normal Saline] 1,000 ml IV ONETIME
--- NOTE | 2017-01-28 07:19 | CT ---
Head CT Technique: Multiple axial sections through the brain were obtained. Intravenous contrast was not utilized. Comparison: No prior intracranial imaging. Findings: Ventricles along with basal cisterns and sulci over the convexities appear within normal limits for the patient's age. No abnormal parenchymal densities are seen. No evidence of intracranial hemorrhage. No midline shift or mass effect is seen. Bone window settings were reviewed which show no acute calvarial abnormality. Visualized sinuses are clear. Impression: 1. Nothing acute is identified on noncontrast head CT study. Diagnostic code #1 Agree with preliminary report issued by [facility] ([facility] preliminary report dictated on 01/27/17, 11:16 PM Central Time)
== END 2017-01-27 22:58 | disposition home or self-care (01) ==
LOC: JD.ED 21:11
DX: G43.009 Migraine without aura, not intractable, without status migrainosus (principal); G47.30 Sleep apnea, unspecified; K21.9 Gastro-esophageal reflux disease without esophagitis; F41.9 Anxiety disorder, unspecified; F32.9 Major depressive disorder, single episode, unspecified; Z79.899 Other long term (current) drug therapy
CPT/HCPCS: 70450; 96361; 96372; 96374; 96375; 99284; J1200; J1630; J2405; J7040

== ENCOUNTER 2017-11-21 18:11 | Emergency (ER) | payer BC ==
[2017-11-21 19:02] VITALS: BP 126/78
--- NOTE | 2017-11-21 19:36 | EDM.PDOC ---
ED HPI GENERAL MEDICAL PROBLEM - General Chief Complaint: General Stated Complaint: LIGHT HEADED Time Seen by Provider: 11/21/17 19:28 Source of Information: Reports: Patient History Limitations: Reports: No Limitations - History of Present Illness INITIAL COMMENTS - FREE TEXT/NARRATIVE: 37-year-old female presents for evaluation and treatment of lightheadedness and malaise. Reports her symptoms have been going on for the last 2 months; over the weekend her symptoms have significantly worsened. States her symptoms started having a nexplanon placed in her left arm. She feels this is causing her symptoms. She is reporting symptoms of hot flashes, chills, lightheadedness , fatigue, headaches and nausea. Reports an unintentional weight loss of 3 or 4. pounds over the last 2 months. No chest pain, chest palpitations, shortness breath abdominal pain or vomiting. She reports a decreased appetite. She states she has had a menstrual cycle on the nexplanon and It has been irregular. Last menstrual cycle lasted about 3 weeks. Patient states she saw her primary care provider and they consider that her problems may be related to his sinuses. She saw ear, nose and throat in [place] , started her on Augmentin and prednisone. She has 1 day left of these medications. She states that she felt better for 1 day on these medications but continues to feel unwell. Patient has labs done on October 17. Patient had a CBC, CMP, free T4, TSH and vitamin D. All were within normal limits. - Related Data Allergies Allergy/AdvReac Type Severity Reaction Status Date / Time No Known Allergies Allergy Verified 11/21/17 18:55 Home Meds: Home Meds Esomeprazole Magnesium [Nexium] 40 mg PO BEDTIME 01/04/16 [History] Rizatriptan Benzoate [Rizatriptan] 1 tab PO Q2H PRN #3 tab.rapdis 01/27/17 [Rx] Amoxicillin/Clavulanate K [Augmentin 875-125 MG] 1 tab PO DAILY 11/21/17 [ History] Sertraline HCl [Zoloft] 75 mg PO DAILY 11/21/17 [History] predniSONE [Prednisone] 1 tab PO DAILY 11/21/17 [History] Past Medical History - Past Health History Medical/Surgical History: Denies Medical/Surgical History HEENT History: Reports: Impaired Vision Respiratory History: Reports: Sleep Apnea (on nightly CPAP 5) 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: Reports: GERD 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: Neurological History: Reports: Headaches, Chronic Psychiatric History: Reports: Anxiety, Depression Endocrine/Metabolic History: Reports: Obesity/BMI 30+ - Infectious Disease History Infectious Disease History: Reports: Chicken Pox - Past Surgical History HEENT Surgical History: Reports: Adenoidectomy, Myringotomy w Tube(s), Oral Surgery, Tonsillectomy GI Surgical History: Reports: Hernia, Abdominal Female Surgical History: Reports: Section, LEEP Social & Family History - Family History Family Medical History: Noncontributory - Tobacco Use Smoking Status *Q: Never Smoker Second Hand Smoke Exposure: No - Caffeine Use Caffeine Use: Reports: Soda - Recreational Drug Use Recreational Drug Use: No - Living Situation & Occupation Living situation: Reports: , with Spouse, with Family (2 kids) Occupation: Employed ([employer]) ED ROS GENERAL - Review of Systems Review Of Systems: See Below Constitutional: Reports: Fever, Fatigue, Weight Loss (3-4 lbs unintentional over the last 2 months). Denies: Chills Respiratory: Denies: Shortness of Breath Cardiovascular: Reports: Lightheadedness. Denies: Chest Pain, Palpitations GI/Abdominal: Reports: Nausea. Denies: Abdominal Pain, Vomiting Neurological: Reports: Dizziness, Headache. Denies: Syncope ED EXAM, GENERAL - Physical Exam Exam: See Below Exam Limited By: No Limitations General Appearance: Alert, WD/WN, No Apparent Distress Eye Exam: Bilateral Eye: Normal Inspection Ears: Normal External Exam, Normal Canal, Hearing Grossly Normal, Normal TMs Nose: Normal Inspection Throat/Mouth: Normal Inspection, Normal Lips, Normal Oropharynx, Normal Voice, No Airway Compromise Neck: Normal Inspection, Supple, Non-Tender. No: Lymphadenopathy (L), Lymphadenopathy (R), Thyromegaly Respiratory/Chest: No Respiratory Distress, Lungs Clear, Normal Breath Sounds Cardiovascular: Normal Peripheral Pulses, Regular Rate, Rhythm, No Murmur GI/Abdominal: Soft, Non-Tender Neurological: Alert, Oriented, Normal Cognition Psychiatric: Normal Affect, Normal Mood Skin Exam: Warm, Dry, Normal Color Course - Vital Signs Last Recorded V/S: Last Vital Signs Temp 97.9 F 11/21/17 19:01 Pulse 84 11/21/17 19:01 Resp 16 11/21/17 19:01 BP 126/78 11/21/17 19:01 Pulse Ox 99 11/21/17 19:01 Orthostatic Blood Pressure [ 119/81 Standing] Orthostatic Blood Pressure [ 124/84 Sitting] Orthostatic Blood Pressure [ 113/75 Supine] - Orders/Labs/Meds Orders: Active Orders 24 hr Category Date Time Status Orthostatic Vital Signs [RC] ASDIRECTED Care 11/21/17 19:24 Ordered - Re-Assessments/Exams Free Text/Narrative Re-Assessment/Exam: 11/21/17 19:30 Patient is not orthostatic. I did offer her laboratory testing but given that she has just had labs done about a month ago she did decline. I do feel that a majority of her symptoms are caused from her nexplanon. I agree that she should have this out. Will refer her back to her primary care or OB to have this procedure done. Will discharge home tonight. Discharge instructions as documented. Departure - Departure Time of Disposition: 19:36 Disposition: Home, Self-Care 01 Condition: Good Clinical Impression: Medication side effects - Discharge Information *PRESCRIPTION DRUG MONITORING PROGRAM REVIEWED*: No *COPY OF PRESCRIPTION DRUG MONITORING REPORT IN PATIENT AVANI: No Referrals: Cassandra Karimi PA-C [Ordering Only Provider] - Forms: ED Department Discharge Additional Instructions: Make sure you're drinking plenty of fluids. you may take [id number] Tylenol or Motrin as needed for the headache. Follow up with your primary care provider or OB for removal of the nexplanon. If you are unable to see Cassandra Karimi, Dr. Rahman or Dr. Harmon should be able to remove this for you. Please ER if your symptoms change or worsen. - My Orders Last 24 Hours: My Active Orders 11/21/17 19:24 Orthostatic Vital Signs [RC] ASDIRECTED - Assessment/Plan Last 24 Hours: My Active Orders 11/21/17 19:24 Orthostatic Vital Signs [RC] ASDIRECTED
== END 2017-11-21 20:00 | disposition home or self-care (01) ==
LOC: JD.ED 18:11
DX: R42 Dizziness and giddiness (principal); T38.5X5A Adverse effect of other estrogens and progestogens, initial encounter; Z79.899 Other long term (current) drug therapy; F41.9 Anxiety disorder, unspecified; F32.9 Major depressive disorder, single episode, unspecified
CPT/HCPCS: 99284

== ENCOUNTER 2018-05-03 06:45 | Day surgery (SDC) | payer BC ==
[~2018-05-03 06:45] MED LIST: Lactated Ringers 1,000 ML IV SCH; Lidocaine 1%/Sod Bicarbonate in NS 8.4% 1 ML Syringe IDERM PRN; Sodium Chloride 0.9% 10 ML Syringe FLUSH PRN
[2018-05-03] MEDS ORDERED: Bupivacaine 0.5% 30 ML SDV ONE (07:33)
[2018-05-03] MEDS ORDERED: Lidocaine 1% with EPINEPHrine 1:100,000 20 ML MDV ONE (07:33)
--- NOTE | 2018-05-03 07:33 | PCM.OPNOTE ---
- General Post-Op/Procedure Note Date of Surgery/Procedure: 05/03/18 Operative Procedure(s): Laparoscopic assisted vaginal hysterectomy with bilateral salpingectomy Findings: SVE with a mobile uterus. Intraabdominal examination showed normal appearance of bilateral fallopian tubes and ovaries. Minimal scarring from prior c- sections. Uterus mildly enlarged with a fundal fibroid. 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 The patient was taken to the Operating Room where general anesthesia was induced without complication. The patient was placed in dorsal lithotomy with Clarence Stirrups and an exam under anesthesia revealed the findings detailed above. The patient was then prepped and draped in the usual sterile fashion. A sterile bivalve speculum was placed into the vagina and the anterior lip of the cervix was grasped with a single tooth tenaculum and a VMob uterine manipulator was placed to allow uterine manipulation throughout the procedure. The speculum and single tooth tenaculum were removed from the vagina. A Sorto catheter was placed in sterile fashion. Attention was then turned to the patients abdomen where a Veress needle was carefully introduced into the peritoneal cavity while tenting the abdominal wall. Intraperitoneal placement was confirmed by free flow of saline into the abdomen from a syringe open to gravity and with a low intraabdominal pressure with insufflation of C02 gas on low flow. The gas was increased to high flow and a pneumoperitoneum was obtained with C02 gas to a pressure of 15 mm Hg. A 5 mm skin incision was made in a vertical fashion in the umbilical fold and a 5 mm blunt trocar was inserted into the abdomen with direct visualization of the laparoscope through the clear view trocar lens. 5 mm skin incisions were made in both the left and right lower quadrants approximately 10 cm lateral and 3 cm inferior to the umbilicus. 5 mm blunt trocars were inserted into the abdomen under direct visualization with care to avoid the abdominal wall vasculature. A blunt probe and grasper were inserted through the accessory ports and a survey of the abdomen revealed the findings detailed above. The right fallopian tube was elevated with the blunt graspers at the fimbriated end. The Ligasure was used to grasp, elevate, cauterize and transect the mesosalpingx from the fimbriated end toward the uterus to the level of the round ligament. The fallopian tube was then amputated and easily removed through a 5 mm port. The round ligament on the right was then elevated, cauterized, and transected with the Ligasure. Hemostasis was noted. Next, the vesicouterine peritoneum was elevated gently with a blunt grasper and the Ligasure and blunt dissection were used to dissect the vesicouterine peritoneum to make a bladder flap. Two more small bites along the right side of the uterus were made with the Ligasure to skeletonize the uterine artery. Hemostasis was noted. The exact same procedure was carried out on the left. Hemostasis as noted. The CO2 gas was turned off and the laparoscope was removed. Attention was then turned to the vaginal portion of the procedure. A short weighted speculum was placed in the vagina, and the cervix was grasped with a double-toothed tenaculum. The cervix was injected circumferentially with 10 mL of 1% lidocaine with dilute epinephrine. The cervix was then circumferentially incised with a scalpel. A Raytec was used to bluntly dissect the cervix circumferentially until an avascular plane was obtained. The posterior cul-de- sac was entered sharply without difficulty. An 0-Vicryl pop-off suture was placed at six o'clock to include the posterior vaginal mucosa and posterior peritoneum. This stitch was tagged with a straight clamp to help with vaginal cuff closure at the end of the case. The short weighted speculum was replaced by the long weighted speculum. The uterosacral ligaments were grasped on either side with the Ligasure, cauterized, and transected. The bladder was dissected off the pubovesical cervical fascia anteriorly with a sponge and blunt dissection. The anterior cul-de-sac was then entered sharply without difficulty. The cardinal ligaments were then serially clamped on both sides with the Ligasure, cauterized, and transected. The uterine arteries were then clamped with the Ligasure, cauterized, and transected. The fundus was confirmed to be free of any further peritoneal attachments and then were pulled out through the vagina. There was slight bleeding on the patient's left at level of uterosacral ligaments. An interrupted suture of 0 vicryl was placed in a figure of eight fashion at this site with good resolution of bleeding. Next, the posterior vaginal cuff was closed with a running, locked 0 vicryl suture. Lastly, the vaginal cuff was closed with a 0-Vicryl in a running locked fashion. Attention was then again turned to the abdomen. All members of the surgical team changed gloves. The laparoscope was again inserted and the abdomen was again insufflated with CO2. The pedicles were again visualized. Edward seal was placed along the vaginal cuff. Hemostasis was confirmed. The patient was taken out of Trendelenberg position. The accessory trocars were removed under direct visualization. The pneumoperitoneum was allowed to escape. The umbilical trocar was removed and lastly the camera was removed from the abdomen under direct visualization to confirm no herniation into the port site. All skin incisions were re-approximated with 4-0 Monocryl and sealed with Dermabond. Hemostasis was noted. A total of 10 cc of 0.25% Marcaine was injected into the subcutaneous tissues surrounding the skin incisions for local anesthesia. All sponge, lap, needle, and instrument counts were correct x 2. The patient tolerated the procedure well and there were no complications. Sorto removed at the end fo the case
[2018-05-03] MEDS ORDERED: Albuterol 0.083% 2.5 MG/3 ML Neb Soln ONE (07:37)
--- NOTE | 2018-05-03 07:43 | PCM.PREANE ---
Preanesthetic Assessment - Anesthesia/Transfusion/Family Hx Anesthesia History: Prior Anesthesia Reaction Type of Anesthesia Reaction: Excessive Nausea/Vomiting Transfusion History: No Prior Transfusion(s) Type of Transfusion Reactions: Reports: Unknown - Review of Systems General: No Symptoms Pulmonary: Other (Nasal drainage without productive cough. MARLO with CPAP. ) Cardiovascular: No Symptoms 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: No Symptoms Neurological: No Symptoms Other: Reports: Depression, Anxiety - Physical Assessment NPO Status Date: 05/03/18 NPO Status Time: 23:30 Pulse: 88 O2 Sat by Pulse Oximetry: 96 Respiratory Rate: 20 Blood Pressure: 120/72 Temperature: 36.8 C Weight: 102 kg ASA Class: 2 Mental Status: Alert & Oriented x3 Airway Class: Mallampati = 2 Dentition: Reports: Normal Dentition Thyro-Mental Finger Breadths: 3 Mouth Opening Finger Breadths: 3 ROM/Head Extension: Full Lungs: Clear to Auscultation, Normal Respiratory Effort Cardiovascular: Regular Rate, Regular Rhythm - Lab Values: Laboratory Last Values WBC 6.14 K/mm3 (3.98-10.04) 05/03/18 07:25 RBC 4.34 M/mm3 (3.98-5.22) 05/03/18 07:25 Hgb 12.9 gm/L (11.2-15.7) 05/03/18 07:25 Hct 38.5 % (34.1-44.9) 05/03/18 07:25 MCV 88.7 fl (79.4-94.8) 05/03/18 07:25 MCH 29.7 pg (25.6-32.2) 05/03/18 07:25 MCHC 33.5 g/dl (32.2-35.5) 05/03/18 07:25 RDW Std Deviation 41.1 fL (36.4-46.3) 05/03/18 07:25 Plt Count 299 K/mm3 (182-369) 05/03/18 07:25 MPV 9.2 fl (9.4-12.3) L 05/03/18 07:25 Neut % (Auto) 54.9 % (34.0-71.1) 05/03/18 07:25 Lymph % (Auto) 32.7 % (19.3-51.7) 05/03/18 07:25 Smyth % (Auto) 9.0 % (4.7-12.5) 05/03/18 07:25 Eos % (Auto) 2.9 (0.7-5.8) 05/03/18 07:25 Baso % (Auto) 0.3 % (0.1-1.2) 05/03/18 07:25 Neut # (Auto) 3.37 K/mm3 (1.56-6.13) 05/03/18 07:25 Lymph # (Auto) 2.01 K/mm3 (1.18-3.74) 05/03/18 07:25 Smyth # (Auto) 0.55 K/mm3 (0.24-0.36) H 05/03/18 07:25 Eos # (Auto) 0.18 K/mm3 (0.04-0.36) 05/03/18 07:25 Baso # (Auto) 0.02 K/mm3 (0.01-0.08) 05/03/18 07:25 Urine HCG, Qual Negative (NEGATIVE) 05/03/18 06:55 - Allergies Allergies/Adverse Reactions: Allergies Allergy/AdvReac Type Severity Reaction Status Date / Time No Known Allergies Allergy Verified 05/02/18 08:52 - Acknowledgements Anesthesia Type Planned: General Anesthesia Pt an Appropriate Candidate for the Planned Anesthesia: Yes Alternatives and Risks of Anesthesia Discussed w Pt/Guardian: Yes Pt/Guardian Understands and Agrees with Anesthesia Plan: Yes Additional Comments: Sujatha understands with her nasal drainage she is experiencing it could cause her lungs to be more reactive. She denies a productive cough or SOB. Dr. Mills also at bedside when discussion with patient taking place. Her throat does not feel painful and does not appear red on examination. Sujatha does wish to proceed. 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: 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 History: Reports: None Neurological History: Reports: Headaches, Chronic Psychiatric History: Reports: Anxiety, Depression Endocrine/Metabolic History: Reports: Obesity/BMI 30+ Hematologic History: Reports: None Immunologic History: Reports: None Oncologic (Cancer) History: Reports: None Dermatologic History: Reports: None - Infectious Disease History Infectious Disease History: Reports: Chicken Pox - Past Surgical History Head Surgeries/Procedures: Reports: None HEENT Surgical History: Reports: Adenoidectomy, Myringotomy w Tube(s), Oral Surgery, Tonsillectomy Cardiovascular Surgical History: Reports: None Respiratory Surgical History: Reports: None GI Surgical History: Reports: EGD, Hernia, Abdominal Female Surgical History: Reports: Section, LEEP Endocrine Surgical History: Reports: None Neurological Surgical History: Reports: None 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 Surgical History: Reports: None Oncologic Surgical History: Reports: None Dermatological Surgical History: Reports: None - SUBSTANCE USE Smoking Status *Q: Never Smoker Recreational Drug Use History: No - HOME MEDS Home Medications: Home Meds Azelastine/Fluticasone [Dymista Nasal [place]] 1 dose NASBOTH BID PRN 05/02/18 [ History] Esomeprazole Magnesium [Nexium] 40 mg PO DAILY 05/02/18 [History] Orphenadrine [Norflex] 100 mg PO BID PRN 05/02/18 [History] SUMAtriptan Succinate [Imitrex] 100 mg PO ASDIRECTED PRN 05/02/18 [History] Sertraline HCl 100 mg PO DAILY 05/02/18 [History] traZODone HCl [Trazodone HCl] 50 mg PO QPM PRN 05/02/18 [History] - CURRENT (IN HOUSE) MEDS Current Meds: Current Medications Albuterol (Proventil Neb Soln) 2.5 mg NEB ONETIME ONE Stop: 05/03/18 07:37 Lactated Ringer's (Ringers, Lactated) 1,000 mls @ 125 mls/hr IV ASDIRECTED DIANDRA Stop: 05/03/18 23:00 Lidocaine/Sodium Bicarbonate (Buffered Lidocaine 1% In Ns 8.4%) 0.25 ml IDERM ONETIME PRN PRN Reason: Prior to IV Start Stop: 05/03/18 18:00 Scopolamine (Transderm-Scop) 1.5 mg TOP ONETIME ONE Stop: 05/03/18 07:37 Sodium Chloride (Saline Flush) 10 ml FLUSH ASDIRECTED PRN PRN Reason: Keep Vein Open Stop: 05/04/18 18:00 Discontinued Medications Bupivacaine HCl (Marcaine 0.5%) Confirm Administered Dose 30 ml .ROUTE .STK-MED ONE Stop: 05/03/18 07:34 Lidocaine/Epinephrine (Xylocaine 1% With Epinephrine 1:100,000) Confirm Administered Dose 20 ml .ROUTE .STK-MED ONE Stop: 05/03/18 07:34
[2018-05-03] MEDS ORDERED: Ondansetron 4 MG/2 ML SDV ONE (07:45)
[2018-05-03] MEDS ORDERED: Lactated Ringers 1,000 ML ONE ×2 (07:45→10:27)
[2018-05-03] MEDS ORDERED: Scopolamine 1.5 MG Transdermal Patch TOP ONE (07:45)
[2018-05-03] MEDS ORDERED: ceFAZolin 1 GM Vial ONE (07:45)
[2018-05-03] MEDS ORDERED: Albuterol 0.083% 2.5 MG/3 ML Neb Soln NEB ONE (07:45)
[2018-05-03] MEDS ORDERED: Lidocaine 1% 4 ML ONE ×2 (07:45→07:46)
[2018-05-03] MEDS ORDERED: Rocuronium 50 MG/5 ML Vial ONE (07:45)
[2018-05-03] MEDS ORDERED: Midazolam 1 MG/ML 2 ML SDV ONE (07:46)
[2018-05-03] MEDS ORDERED: fentaNYL 250 MCG/5 ML SDV ONE (07:46)
[2018-05-03] MEDS ORDERED: Dexamethasone 4 MG/ML 5 ML MDV ONE (07:46)
[2018-05-03] MEDS ORDERED: Propofol 200 MG/20 ML SDV ONE (07:46)
[2018-05-03] MEDS ORDERED: Succinylcholine/Normal Saline 100 MG/5 ML Syringe ONE (08:22)
[2018-05-03] MEDS ORDERED: Albuterol 0.083% 2.5 MG/3 ML Neb Soln NEB PRN (08:47)
[2018-05-03] MEDS ORDERED: fentaNYL 100 MCG/2 ML SDV IVPUSH PRN (08:47)
[2018-05-03] MEDS ORDERED: Haloperidol Lactate 5 MG/ML SDV IVPUSH PRN (08:47)
[2018-05-03] MEDS ORDERED: HYDROmorphone 0.5 MG/0.5 ML Syringe IVPUSH PRN (08:47)
[2018-05-03] MEDS ORDERED: diphenhydrAMINE 50 MG/ML SDV IVPUSH PRN (08:47)
[2018-05-03] MEDS ORDERED: Ketamine 500 mg/10 ML MDV ONE (08:59)
[2018-05-03] MEDS ORDERED: fentaNYL 100 MCG/2 ML SDV ONE (09:14)
[2018-05-03] MEDS ORDERED: Phenylephrine/Normal Saline 100 MCG/ML 10 ML Syringe ONE (09:19)
[2018-05-03] MEDS ORDERED: Ketorolac 30 MG/ML SDV ONE (09:42)
--- NOTE | 2018-05-03 10:17 | PCM.POSTAN ---
POST ANESTHESIA ASSESSMENT - MENTAL STATUS Mental Status: Oriented, Other (Drowsy, responds to name. ) - VITAL SIGNS Pulse Rate: 118 SaO2: 100 Resp Rate: 18 Blood Pressure: 131/73 Temperature: 37.5 C - RESPIRATORY Respiratory Status: Respiratory Rate WNL, Airway Patent, O2 Saturation Stable, Supplemental Oxygen - CARDIOVASCULAR CV Status: Blood Pressure Stable, Elevated Pulse Rate - GASTROINTESTINAL GI Status: No Symptoms - PAIN Pain Score: 0 - POST OP HYDRATION Hydration Status: Adequate & Stable
[2018-05-03] MEDS ORDERED: Ondansetron 4 MG/2 ML SDV IVPUSH ONE (12:00)
[2018-05-03] MEDS ORDERED: Acetaminophen/oxyCODONE 325-5 MG Tab PO PRN (12:26)
[2018-05-03 14:39] VITALS: BP 129/74
== END 2018-05-03 14:26 | disposition home or self-care (01) ==
LOC: JD.SDS 06:45
PROVIDERS: ATTEND Obstetrics & Gynecology
DX: D25.1 Intramural leiomyoma of uterus (principal); N72 Inflammatory disease of cervix uteri; N73.6 Female pelvic peritoneal adhesions (postinfective); N83.8 Other noninflammatory disorders of ovary, fallopian tube and broad ligament; K21.9 Gastro-esophageal reflux disease without esophagitis; F41.8 Other specified anxiety disorders; G47.33 Obstructive sleep apnea (adult) (pediatric); E66.9 Obesity, unspecified; Z68.41 Body mass index [BMI] 40.0-44.9, adult; Z99.89 Dependence on other enabling machines and devices; Z79.899 Other long term (current) drug therapy
CPT/HCPCS: 36415; 58552; 80048; 81025; 85025; 86850; 86900; 86901; 94640; A9270; J0330; J0690; J1100; J1170; J1885; J2001; J2250; J2370; J2405; J2704; J3010; J3490; J7120

== ENCOUNTER 2018-12-03 16:54 | Emergency (ER) | payer BC ==
[2018-12-03 17:24] VITALS: BP 109/78; PULSE 102
[2018-12-03] MEDS ORDERED: Albuterol 6.7 GM Inhaler INH ONE (17:30)
--- NOTE | 2018-12-03 18:04 | EDM.PDOC ---
ED HPI GENERAL MEDICAL PROBLEM - General Chief Complaint: Respiratory Problem Stated Complaint: RESPIRATORY COMPLAINT Time Seen by Provider: 12/03/18 17:17 Source of Information: Reports: Patient History Limitations: Reports: No Limitations - History of Present Illness INITIAL COMMENTS - FREE TEXT/NARRATIVE: The patient presents with a cough, congestion, runny nose and sinus pressure. This has been going on for a few days. She was seen at the walk in clinic and she was put on some tesilon pearls. They are not helping. She has some left ear pressure with drainage. She has a slight sore throat. She does not smoke and she has no history of asthma. Onset: Gradual Duration: Week(s): Severity: Moderate Improves with: Reports: None Worsens with: Reports: None Associated Symptoms: Reports: Cough. Denies: Chest Pain, Nausea/Vomiting Frontal Headache Pain Score (Numeric/FACES): 5 - Related Data Allergies Allergy/AdvReac Type Severity Reaction Status Date / Time No Known Allergies Allergy Verified 10/03/18 09:20 Home Meds: Home Meds Azelastine/Fluticasone [Dymista Nasal [place]] 1 dose NASBOTH BID PRN 05/02/18 [ History] Esomeprazole Magnesium [Nexium] 40 mg PO DAILY 05/02/18 [History] SUMAtriptan Succinate [Imitrex] 100 mg PO ASDIRECTED PRN 05/02/18 [History] Sertraline HCl 75 mg PO DAILY 05/02/18 [History] Ondansetron [Zofran] 4 mg BUCCAL Q6H PRN #5 tab 10/03/18 [Rx] traZODone HCl [Trazodone HCl] 50 mg PO QPM PRN 10/03/18 [History] Past Medical History - Past Health History Medical/Surgical History: Denies Medical/Surgical History HEENT History: Reports: Impaired Vision, Other (See Below) Other HEENT History: wears glasses Cardiovascular History: Reports: None Respiratory History: Reports: Sleep Apnea 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: Reports: GERD 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 History: Reports: None Neurological History: Reports: Headaches, Chronic Psychiatric History: Reports: Anxiety, Depression Endocrine/Metabolic History: Reports: Obesity/BMI 30+ Hematologic History: Reports: None Immunologic History: Reports: None Oncologic (Cancer) History: Reports: None Dermatologic History: Reports: None - Infectious Disease History Infectious Disease History: Reports: Chicken Pox - Past Surgical History Head Surgeries/Procedures: Reports: None HEENT Surgical History: Reports: Adenoidectomy, Myringotomy w Tube(s), Oral Surgery, Tonsillectomy Cardiovascular Surgical History: Reports: None Respiratory Surgical History: Reports: None GI Surgical History: Reports: EGD, Hernia, Abdominal Female Surgical History: Reports: Section, LEEP Endocrine Surgical History: Reports: None Neurological Surgical History: Reports: None 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 Surgical History: Reports: None Oncologic Surgical History: Reports: None Dermatological Surgical History: Reports: None Social & Family History - Family History Family Medical History: Noncontributory - Caffeine Use Caffeine Use: Reports: Soda - Living Situation & Occupation Living situation: Reports: , with Spouse, with Family (2 kids) Occupation: Employed ([employer]) ED ROS GENERAL - Review of Systems Review Of Systems: See Below Constitutional: Reports: No Symptoms HEENT: Reports: Other (congestion and runnynose) Respiratory: Reports: Cough. Denies: Shortness of Breath Cardiovascular: Reports: No Symptoms Endocrine: Reports: No Symptoms GI/Abdominal: Reports: No Symptoms ED EXAM, GENERAL - Physical Exam Exam: See Below Exam Limited By: No Limitations General Appearance: Alert, No Apparent Distress Ears: Normal External Exam Nose: Normal Inspection Head: Atraumatic, Normocephalic Neck: Normal Inspection Respiratory/Chest: No Respiratory Distress, Normal Breath Sounds, Other (slight wheeze to the right upper lung that cleared with coughing) Cardiovascular: Regular Rate, Rhythm, No Edema, No Murmur GI/Abdominal: Soft, Non-Tender, No Organomegaly, No Mass Back Exam: Normal Inspection Extremities: Normal Inspection Course - Vital Signs Last Recorded V/S: Last Vital Signs Temp 98.1 F 12/03/18 17:22 Pulse 102 H 12/03/18 17:22 Resp 24 H 12/03/18 17:22 BP 109/78 12/03/18 17:22 Pulse Ox 92 L 12/03/18 17:38 - Orders/Labs/Meds Orders: Active Orders 24 hr Category Date Time Status RT Post Treatment Assessment [RC] Click to Edit Care 12/03/18 17:30 Active RT Pre-Treatment Assessment [RC] Click to Edit Care 12/03/18 17:30 Active Meds: Medications Discontinued Medications Generic Name Dose Route Start Last Admin Trade Name Evon PRN Reason Stop Dose Admin Albuterol 0 gm 12/03/18 17:30 12/03/18 17:34 Proventil Hfa INH 12/03/18 17:31 2 puff ONETIME ONE Administration - Re-Assessments/Exams Free Text/Narrative Re-Assessment/Exam: 12/03/18 18:02 I feel she has bronchitis and sinusitis. I will give her an inhaler from here and give her a Z-julia and some phenergan with codeine. Departure - Departure Time of Disposition: 18:05 Disposition: Home, Self-Care 01 Condition: Good Clinical Impression: Bronchitis Sinusitis Qualifiers: Sinusitis location: unspecified location Chronicity: acute Recurrence: non- recurrent Qualified Code(s): J01.90 - Acute sinusitis, unspecified - Discharge Information *PRESCRIPTION DRUG MONITORING PROGRAM REVIEWED*: No *COPY OF PRESCRIPTION DRUG MONITORING REPORT IN PATIENT AVANI: No Referrals: Cassandra Karimi PA-C [Primary Care Provider] - Additional Instructions: Take the medication as prescribed. Drink plenty of fluids. Please return if you are worse. - My Orders Last 24 Hours: My Active Orders 12/03/18 17:30 RT Post Treatment Assessment [RC] Click to Edit RT Pre-Treatment Assessment [RC] Click to Edit - Assessment/Plan Last 24 Hours: My Active Orders 12/03/18 17:30 RT Post Treatment Assessment [RC] Click to Edit RT Pre-Treatment Assessment [RC] Click to Edit
== END 2018-12-03 18:10 | disposition home or self-care (01) ==
LOC: JD.ED 16:54
DX: J01.90 Acute sinusitis, unspecified (principal); J40 Bronchitis, not specified as acute or chronic; F32.9 Major depressive disorder, single episode, unspecified; F41.9 Anxiety disorder, unspecified; E66.9 Obesity, unspecified; Z68.30 Body mass index [BMI] 30.0-30.9, adult; Z98.890 Other specified postprocedural states; Z79.899 Other long term (current) drug therapy
CPT/HCPCS: 94640; 99283; A9270

== ENCOUNTER 2019-11-04 16:48 | Emergency (ER) | payer BC ==
[2019-11-04 17:04] VITALS: BP 124/74; PULSE 90
[2019-11-04] MEDS ORDERED: Orphenadrine 100 MG Tab.ER PO ONE (17:10)
[2019-11-04] MEDS ORDERED: Ketorolac 30 MG/ML SDV IM ONE (17:10)
--- NOTE | 2019-11-04 17:15 | EDM.PDOC ---
ED HPI GENERAL MEDICAL PROBLEM - General Chief Complaint: Back Pain or Injury Stated Complaint: BACK PAIN Time Seen by Provider: 11/04/19 16:56 Source of Information: Reports: Patient, RN Notes Reviewed History Limitations: Reports: No Limitations - History of Present Illness INITIAL COMMENTS - FREE TEXT/NARRATIVE: Patient is a 39-year-old female who presents to the ED for the evaluation of her back pain. Patient notes that her and her were moving a washer and dryer in their rented house. From the basement to upstairs, and she noted that her back was more painful and sore today after moving this. She used 800 mg ibuprofen last night around 5 PM, and repeated the dose at around 2 PM this afternoon. Patient notes the pain is sharp, and also dull and achy. She states that everything seems to hurt, but her mid to upper back seems to be hurt the worse. She notes that heat seem to help the back. She denies any prior issues with her back. She states is very constant pain. Movement seems to bother it, resting and relaxing seems to make it feel better. She is not having any numbness or tingling into her legs, and rates this pain at a 6 out of 10. She f urther denies any fever/chills, cough/shortness of breath, nausea/vomiting/diarrhea. Back Pain Score (Numeric/FACES): 6 - Related Data Allergies Allergy/AdvReac Type Severity Reaction Status Date / Time No Known Allergies Allergy Verified 10/03/18 09:20 Home Meds: Home Meds Azelastine/Fluticasone [Dymista Nasal [place]] 1 dose NASBOTH BID PRN 05/02/18 [History] SUMAtriptan succinate [Imitrex] 100 mg PO ASDIRECTED PRN 05/02/18 [History] Naproxen [Naprosyn] 500 mg PO Q12HR #20 tab 11/04/19 [Rx] Orphenadrine [Norflex] 100 mg PO BID PRN #20 tab 11/04/19 [Rx] Past Medical History HEENT History: Reports: Impaired Vision, Other (See Below) Other HEENT History: wears glasses Respiratory History: Reports: Sleep Apnea 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: Reports: 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: Neurological History: Reports: Headaches, Chronic Psychiatric History: Reports: Anxiety, Depression Endocrine/Metabolic History: Reports: Obesity/BMI 30+ - Infectious Disease History Infectious Disease History: Reports: Chicken Pox - Past Surgical History HEENT Surgical History: Reports: Adenoidectomy, Myringotomy w Tube(s), Oral Surgery, Tonsillectomy GI Surgical History: Reports: EGD, Hernia, Abdominal Female Surgical History: Reports: Section, Hysterectomy, LEEP Other Female Surgeries/Procedures: partial hysterectomy Social & Family History - Family History Family Medical History: Noncontributory - Tobacco Use Smoking Status *Q: Never Smoker - Caffeine Use Caffeine Use: Reports: Soda - Recreational Drug Use Recreational Drug Use: No - Living Situation & Occupation Living situation: Reports: , with Spouse, with Family (2 kids) Occupation: Employed ([employer]) ED ROS GENERAL - Review of Systems Review Of Systems: Comprehensive ROS is negative, except as noted in HPI. ED EXAM,LOWER BACK PAIN/INJURY - Physical Exam Exam: See Below Exam Limited By: No Limitations General Appearance: Alert, WD/WN, No Apparent Distress Neck: Normal Inspection, Supple, Non-Tender, Lymphadenopathy (L) Respiratory/Chest: No Respiratory Distress, Lungs Clear, Normal Breath Sounds, No Accessory Muscle Use, Chest Non-Tender Cardiovascular: Normal Peripheral Pulses, Regular Rate, Rhythm, No Murmur Back Exam: Normal Inspection, Other (pt has tenderness over the distribution of her trapezius mainly) Extremities: Normal Inspection, Normal Capillary Refill Neurological: Alert, Normal Mood/Affect, Normal Dorsiflexion, Normal Plantar Flexion, Normal Gait Psychiatric: Normal Affect, Normal Mood Skin Exam: Warm, Dry, Intact, Normal Color, No Rash Course - Vital Signs Last Recorded V/S: Last Vital Signs Temp 97.3 F 11/04/19 17:02 Pulse 90 11/04/19 17:02 Resp 20 11/04/19 17:02 BP 124/74 11/04/19 17:02 Pulse Ox 99 11/04/19 17:02 - Orders/Labs/Meds Meds: Medications Discontinued Medications Generic Name Dose Route Start Last Admin Trade Name Freq PRN Reason Stop Dose Admin Ketorolac Tromethamine 60 mg 11/04/19 17:10 Toradol IM 11/04/19 17:11 ONETIME ONE Orphenadrine Citrate 100 mg 11/04/19 17:10 Norflex PO 11/04/19 17:11 ONETIME ONE - Re-Assessments/Exams Free Text/Narrative Re-Assessment/Exam: 11/04/19 17:14 Patient presents to the ED for evaluation of her back pain. I do believe she has strained her trapezius muscle. Patient be given an injection of Toradol and Norflex for initial management. She will be given a prescription for Norflex, and have her take Naprosyn for further pain management. Departure - Departure Time of Disposition: 17:15 Disposition: Home, Self-Care 01 Condition: Good Clinical Impression: Strain of trapezius muscle Qualifiers: Encounter type: initial encounter Laterality: unspecified laterality Qualified Code(s): S46.819A - Strain of other muscles, fascia and tendons at shoulder and upper arm level, unspecified arm, initial encounter - Discharge Information *PRESCRIPTION DRUG MONITORING PROGRAM REVIEWED*: No *COPY OF PRESCRIPTION DRUG MONITORING REPORT IN PATIENT AVANI: No Prescriptions: Naproxen [Naprosyn] 500 mg PO Q12HR #20 tab Orphenadrine [Norflex] 100 mg PO BID PRN #20 tab PRN Reason: Spasms Instructions: Muscle Strain, [id number] Referrals: Cassandra Karimi PA-C [Primary Care Provider] - Forms: ED Department Discharge Additional Instructions: You have been evaluated in the ED for your back pain. It is likely that you have strained your trapezius muscle in your back. Please use ice/heat as tolerated to the affected area. You may try getting into the Chiropractor tomorrow to see if that would help alleviate the pain, or massage therapy. You were given a prescription for Naprosyn, 1 tab every 12 hours as needed for further pain relief, and Norflex, this is a muscle relaxer, 1 tab 2 times a day as needed for muscle spasms. These medications were electronically prescribed to the [facility] located on [address], you will need to go there tomorrow during normal business hours to pick this up and take as directed. Please return to ED if your symptoms should change or worsen. Sepsis Event Note (ED) - Evaluation Sepsis Screening Result: No Definite Risk - Focused Exam Vital Signs: Vital Signs Temp Pulse Resp BP Pulse Ox 11/04/19 17:02 97.3 F 90 20 124/74 99
== END 2019-11-04 17:33 | disposition home or self-care (01) ==
LOC: JD.ED 16:48
DX: S46.819A Strain of other muscles, fascia and tendons at shoulder and upper arm level, unspecified arm, initial encounter (principal); E66.9 Obesity, unspecified; Z68.41 Body mass index [BMI] 40.0-44.9, adult; X50.0XXA Overexertion from strenuous movement or load, initial encounter
CPT/HCPCS: 96372; 99283; A9270; J1885

== ENCOUNTER 2020-08-20 07:07 | Day surgery (SDC) | payer BC ==
--- NOTE | 2020-08-20 07:13 | PCM.PREANE ---
Preanesthetic Assessment - Procedure Proposed Procedure: EGD - Anesthesia/Transfusion/Family Hx Anesthesia History: Prior Anesthesia Reaction Family History of Anesthesia Reaction: No Transfusion History: No Prior Transfusion(s) Type of Transfusion Reactions: Reports: Unknown Intubation History: Unknown - Review of Systems General: Other (Sinus drainage from allergies) Pulmonary: No Symptoms Cardiovascular: No Symptoms 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: No Symptoms Neurological: No Symptoms Other: Reports: Anxiety - Physical Assessment NPO Status Date: 08/19/20 NPO Status Time: 22:00 Vital Signs: 112/47 HR 82 97.0 RR 20 97 RA Height: 1.6 m Weight: 112.9 kg ASA Class: 2 Mental Status: Alert & Oriented x3 Airway Class: Mallampati = 3 Dentition: Reports: Missing Tooth/Teeth (Missing tooth to right lower, and missing tooth to left upper) Thyro-Mental Finger Breadths: 3 Mouth Opening Finger Breadths: 2 ROM/Head Extension: Limited/Partial Lungs: Clear to Auscultation, Normal Respiratory Effort Cardiovascular: Regular Rate, Regular Rhythm - Allergies Allergies/Adverse Reactions: Allergies Allergy/AdvReac Type Severity Reaction Status Date / Time No Known Allergies Allergy Verified 08/19/20 11:03 - Blood Blood Available: No Product(s) Available: None - Anesthesia Plan Pre-Op Medication Ordered: None - Acknowledgements Anesthesia Type Planned: MAC Pt an Appropriate Candidate for the Planned Anesthesia: Yes Alternatives and Risks of Anesthesia Discussed w Pt/Guardian: Yes Pt/Guardian Understands and Agrees with Anesthesia Plan: Yes PreAnesthesia Questionnaire - Past Health History Medical/Surgical History: Denies Medical/Surgical History HEENT History: Reports: Impaired Vision, Other (See Below) Other HEENT History: wears glasses Cardiovascular History: Reports: None Respiratory History: Reports: Sleep Apnea Other Respiratory History: Wears CPAP at night 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: Reports: GERD Genitourinary History: Reports: None 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: 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 History: Reports: Other (See Below) Other 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 History: TENDONITIS Neurological History: Reports: Headaches, Chronic Psychiatric History: Reports: Anxiety, Depression Endocrine/Metabolic History: Reports: Obesity/BMI 30+ Hematologic History: Reports: None Immunologic History: Reports: None Oncologic (Cancer) History: Reports: None Dermatologic History: Reports: None - Infectious Disease History Infectious Disease History: Reports: Chicken Pox - Past Surgical History Head Surgeries/Procedures: Reports: None (Has a hernia but has not had surgery for it) HEENT Surgical History: Reports: Adenoidectomy, Myringotomy w Tube(s), Oral Surgery, Tonsillectomy Cardiovascular Surgical History: Reports: None Respiratory Surgical History: Reports: None GI Surgical History: Reports: EGD, Hernia, Abdominal Female Surgical History: Reports: Section (x2), Hysterectomy, LEEP Other Female Surgeries/Procedures: hysterectomy Endocrine Surgical History: Reports: None Neurological Surgical History: Reports: None 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 Surgical History: Reports: None Oncologic Surgical History: Reports: None Dermatological Surgical History: Reports: None - SUBSTANCE USE Tobacco Use Status *Q: Never Tobacco User Second Hand Smoke Exposure: No Days Per Week of Alcohol Use: 1 Number of Drinks Per Day: 1 Total Drinks Per Week: 1 Date of Last Drink: 08/10/20 Time of Last Drink: 20:00 Recreational Drug Use History: No - HOME MEDS Home Medications: Home Meds Esomeprazole [NexIUM] 40 mg PO DAILY 08/19/20 [History] FLUoxetine [PROzac] 40 mg PO DAILY 08/19/20 [History] Ibuprofen 800 mg PO Q6H PRN 08/19/20 [History] Multivitamin [Multiple Vitamins] 1 tab PO DAILY 08/19/20 [History] - CURRENT (IN HOUSE) MEDS Current Meds: Current Medications Lactated Ringer's (Ringers, Lactated) 1,000 mls @ 125 mls/hr IV ASDIRECTED DIANDRA Stop: 08/20/20 23:00 Lidocaine/Sodium Bicarbonate (Lidocaine 1%/Sod Bicarbonate In Ns 8.4% 1 Ml Syringe) 0.25 ml IDERM ONETIME PRN PRN Reason: Prior to IV Start Stop: 08/20/20 23:00 Sodium Chloride (Sodium Chloride 0.9% 10 Ml Syringe) 10 ml FLUSH ASDIRECTED PRN PRN Reason: Keep Vein Open Stop: 08/20/20 23:00
[2020-08-20] MEDS ORDERED: Lidocaine 1% 6 ML ONE (07:36)
[2020-08-20] MEDS ORDERED: Propofol 200 MG/20 ML SDV ONE ×2 (07:38)
[2020-08-20] MEDS ORDERED: Midazolam 1 MG/ML 2 ML SDV ONE (07:40)
[2020-08-20] MEDS ORDERED: fentaNYL 100 MCG/2 ML SDV ONE (07:41)
--- NOTE | 2020-08-20 08:51 | PCM.OPNOTE ---
- General Post-Op/Procedure Note Date of Surgery/Procedure: 08/20/20 Operative Procedure(s): EGD Findings: 1. Irregular GE junction 2. Small sliding hiatal hernia 3. Gastric polyps 4. Gastritis Pre Op Diagnosis: globus sensation, GERD Post-Op Diagnosis: same Anesthesia Technique: MAC Primary Surgeon: Deb Marrero Anesthesia Provider: Yee Das Pathology: 1. GE junction biopsies 2. Gastric polyps 3. Gastric antrum biopsies Fluid Replacement, Intraop: 450 Output, Urine Amount: 0 EBL in mLs: 0 Complications: none apparent Condition: Good
--- NOTE | 2020-08-20 08:53 | PCM.PRNOTE ---
- Free Text/Narrative Note: Operative Report Date of procedure: August 20, 2020 Preoperative diagnosis: Globus sensation, GERD Postoperative diagnosis: Same Surgeon: Deb Marrero M.D. Procedure: EGD with biopsies Anesthesia: MAC Ethylene Plant Operator: Yee Das CRNA IV fluids: 450 mL Estimated blood loss: 5 mL Findings: 1. Irregular GE junction 2. Small sliding hiatal hernia 3. Gastric polyps 4. Gastritis 5. Bile reflux Specimens: 1. GE junction biopsies 2. Gastric polyps 3. Gastric antrum biopsies Indication: The patient is a 40 -year-old lady who presented with a history of acid reflux that is symptomatic despite therapy with PPI. She additionally has a history of a hiatal hernia. She has also reporting new globus sensation. The patient was consented for an EGD. Risk of bleeding and perforation were discussed. The patient's consent was obtained Description of the procedure: The patient was taken to the endoscopy suite and placed on hemodynamic monitoring. The nurse healthcare network pricing consultant induced MAC anesthesia. A bite block was placed. The patient was positioned in the left lateral decubitus position. A timeout was performed. The endoscope was gently placed into the mouth to the back of the pharynx and introduced into the esophagus. The scope was gently advanced under direct visualization down to the level of the lower esophageal sphincter. The stomach was then entered. Normal rugal folds were noted. The scope was advanced into the antrum. We noted bile tinted fluid pooling in the stomach. There was erythema of the stomach tissue consistent with gastritis. The pylorus was then entered and the first and second portion of the duodenum was inspected. There were no ulcerations in the duodenum. The scope was withdrawn to the antrum and biopsies were taken using a cold biopsy forceps the scope was then retroflexed in the cardia and fundus were investigated. There were many flat polyps in this area measuring 3 to 4 mm. Two of these polyps were sampled using a cold biopsy forceps. The scope was then withdrawn towards the esophagus. The patient had an irregular Z-line, and biopsies were taken in 4 quadrants using a jumbo cold biopsy forceps. There was evidence of the previous reported hiatal hernia as the patient had a small sliding hiatal hernia noted. The scope was then withdrawn while inspecting the esophagus. No other abnormalities were noted. The procedure was terminated. the patient tolerated the procedure well without any evidence of complications. Deb Marrero MD General Surgery
--- NOTE | 2020-08-20 08:55 | PCM48HPAN ---
Post Anesthesia Note - EVALUATION WITHIN 48HRS OF ANESTHETIC Vital Signs in Normal Range: Yes Patient Participated in Evaluation: Yes Respiratory Function Stable: Yes Airway Patent: Yes Cardiovascular Function Stable: Yes Hydration Status Stable: Yes Pain Control Satisfactory: Yes Nausea and Vomiting Control Satisfactory: Yes Mental Status Recovered: Yes Vital Signs: Last Vital Signs Temp 97 F 08/20/20 07:10 Pulse 82 08/20/20 07:10 Resp 20 08/20/20 07:10 BP 112/47 L 08/20/20 07:10 Pulse Ox 97 08/20/20 07:10 120/49 HR 81 Sats 97 Temp 99.5 RR 20
[2020-08-20 09:06] VITALS: BP 120/53; PULSE 73
== END 2020-08-20 09:38 | disposition home or self-care (01) ==
LOC: JD.SDS 07:07
PROVIDERS: ATTEND Surgery
DX: K29.50 Unspecified chronic gastritis without bleeding (principal); K31.89 Other diseases of stomach and duodenum; K21.9 Gastro-esophageal reflux disease without esophagitis; K22.8 Other specified diseases of esophagus; K44.9 Diaphragmatic hernia without obstruction or gangrene; K31.7 Polyp of stomach and duodenum; F45.8 Other somatoform disorders; G47.33 Obstructive sleep apnea (adult) (pediatric); G47.30 Sleep apnea, unspecified; Z98.890 Other specified postprocedural states
CPT/HCPCS: 00731; J2250; J2704; J3010; J7120

== ENCOUNTER 2023-01-05 08:49 | Day surgery (SDC) | payer BC ==
[~2023-01-05 08:49] MED LIST changes: -Lidocaine 1%/Sod Bicarbonate in NS 8.4% 1 ML Syringe IDERM PRN; +Sodium Chloride 0.9% 10 ML Syringe FLUSH SCH
[2023-01-05] MEDS ORDERED: Midazolam 1 MG/ML 2 ML SDV ONE (09:50)
[2023-01-05] MEDS ORDERED: Propofol 200 MG/20 ML SDV ONE ×2 (09:51)
[2023-01-05] MEDS ORDERED: Lidocaine 1% 2 ML ONE (09:51)
[2023-01-05] MEDS ORDERED: fentaNYL 100 MCG/2 ML SDV ONE (09:51)
[2023-01-05] MEDS ORDERED: Bupivacaine 0.5% 30 ML SDV ONE (10:15)
[2023-01-05] MEDS ORDERED: Ondansetron 4 MG/2 ML SDV IVPUSH PRN (10:49)
[2023-01-05 12:53] VITALS: BP 133/70; PULSE 74
== END 2023-01-05 12:20 | disposition home or self-care (01) ==
LOC: JD.SDS 08:49
PROVIDERS: ATTEND Surgery
DX: K29.50 Unspecified chronic gastritis without bleeding (principal); K21.9 Gastro-esophageal reflux disease without esophagitis; K29.80 Duodenitis without bleeding; K44.9 Diaphragmatic hernia without obstruction or gangrene; K22.89 Other specified disease of esophagus; K31.89 Other diseases of stomach and duodenum; Q43.8 Other specified congenital malformations of intestine; K64.9 Unspecified hemorrhoids; G47.33 Obstructive sleep apnea (adult) (pediatric); F41.8 Other specified anxiety disorders; Z98.890 Other specified postprocedural states; Z79.899 Other long term (current) drug therapy; E66.9 Obesity, unspecified; Z68.41 Body mass index [BMI] 40.0-44.9, adult
CPT/HCPCS: 43239; 45378; J2250; J2704; J3010; J7120; 00813; J3490

== ENCOUNTER 2023-03-29 19:53 | Emergency (ER) | payer BC ==
[2023-03-29] MEDS ORDERED: Acetaminophen 325 MG Tab PO ONE (20:24)
[2023-03-29] MEDS ORDERED: Ibuprofen 800 MG Tab PO ONE (20:27)
[2023-03-29 20:52] VITALS: BP 121/78; PULSE 94
== END 2023-03-29 20:41 | disposition home or self-care (01) ==
LOC: JD.ED 19:53
DX: S39.012A Strain of muscle, fascia and tendon of lower back, initial encounter (principal); E66.9 Obesity, unspecified; Z68.42 Body mass index [BMI] 45.0-49.9, adult; Z90.710 Acquired absence of both cervix and uterus; X50.0XXA Overexertion from strenuous movement or load, initial encounter
CPT/HCPCS: 99283; A9270